=== PATIENT | male | born 1965 | race Caucasian/White ===

== ENCOUNTER 2020-10-20 14:15 | Emergency (ER) | payer OTHER ==
[2020-10-20 15:06] VITALS: BMI 34.5
[2020-10-20 16:30] LABS: BASO % 1.2 % (0-2.0); EOS % 0.4 % (0-4.5); HEMATOCRIT 30.3 % (35.4-49); HEMOGLOBIN 10.4 GM/dL (11.7-16.9); LYMPH % 14.6 % (8-40); MCH 26.9 pg (25.7-33.7); MCHC 34.2 g/dl (32.0-35.9); MEAN CELL VOLUME 78.7 fl (80-96); MEAN PLT VOLUME 9.4 fl (7.5-11.1); MONO % 8.4 % (3.8-10.2); NEUT % 75.4 % (42.8-82.8); PLATELET COUNT 111 K/MM3 (134-434); RBC 3.85 M/mm3 (4.00-5.60); RDW 19.9 % (11.9-15.9); WHITE BLOOD COUNT 6.6 K/mm3 (4.0-10.0)
[2020-10-20] MEDS ORDERED: chlordiazePOXIDE HCL 25 MG CAPSULE PO ONE ×2 (16:48→19:29)
[2020-10-20] MEDS ORDERED: chlordiazePOXIDE HCL 25 MG CAPSULE ONE ×2 (16:53→19:36)
[2020-10-20 16:56] LABS: BLOOD UREA NITROGEN 11.5 mg/dL (7-18); CALCIUM 8.3 mg/dL (8.5-10.1)
[2020-10-20 16:59] LABS: CREATININE 0.7 mg/dL (0.55-1.3)
[2020-10-20 17:01] LABS: BILIRUBIN,TOTAL 4.5 mg/dL (0.2-1); TOT PROT 8.5 g/dl (6.4-8.2)
[2020-10-20] MEDS ORDERED: DALBAVANCIN HCL 1,500 MG in DEXTROSE 5%-WATER - 500 ML IVPB ONE (17:36)
[2020-10-20] MEDS ORDERED: DALBAVANCIN HCL 500 MG VIAL (RESTRICTED TO ID ONLY) IVPB ONE (18:14)
[2020-10-20 20:37] VITALS: BP 127/68; PULSE 89; TEMP 98.6
== END 2020-10-20 20:36 | disposition home or self-care (01) ==
LOC: JER 14:15
DX: R21 Rash and other nonspecific skin eruption (principal); R22.42 Localized swelling, mass and lump, left lower limb
CPT/HCPCS: 36415; 80053; 84132; 85025; 93970-TC; 99284-25; J0875

== ENCOUNTER 2020-10-20 21:15 | Inpatient (IN) | payer OTHER ==
[2020-10-20 22:24] VITALS: BMI 34.0
[2020-10-20] MEDS ORDERED: IBUPROFEN 400 MG TABLET (FP) PO PRN (22:33)
[2020-10-20] MEDS ORDERED: ACETAMINOPHEN 325 MG TABLET (FP) PO PRN ×2 (22:33)
[2020-10-20] MEDS ORDERED: METHOCARBAMOL 500 MG TABLET PO PRN (22:33)
[2020-10-20] MEDS ORDERED: BISMUTH SUBSALICYLATE 524 MG/30 ML UD PO PRN (22:33)
[2020-10-20] MEDS ORDERED: ONDANSETRON *ODT* 4 MG TABLET SL PRN (22:33)
[2020-10-20] MEDS ORDERED: MENTHOL/PHENOL 1 EACH UD MM PRN (22:33)
[2020-10-20] MEDS ORDERED: MAG HYDROX/AL HYDROX/SIMETH 30 ML UNIT-DOSE CUP PO PRN (22:33)
[2020-10-20] MEDS ORDERED: chlordiazePOXIDE HCL 25 MG CAPSULE PO PRN (22:33)
[2020-10-20] MEDS ORDERED: MAGNESIUM HYDROX 2400MG/30ML ORAL SUSPENSION 30 ML CUP PO PRN (22:33)
[2020-10-20] MEDS ORDERED: MAGNESIUM CITRATE 300 ML BOTTLE PO PRN (22:33)
[2020-10-20] MEDS ORDERED: cloNIDine HCL 0.1 MG TABLET PO PRN (23:04)
[2020-10-21] MEDS: chlordiazePOXIDE HCL 25 MG CAPSULE PO SCH ×5 (00:52→22:17)
[2020-10-21] MEDS: hydrOXYzine PAMOATE 25 MG CAPSULE (FP) PO SCH ×6 (05:21→22:17)
[2020-10-21] MEDS ORDERED: METHADONE HCL 10 MG TABLET PO SCH (10:00)
[2020-10-21] MEDS ORDERED: MELATONIN 5 MG TABLETS PO PRN (10:24)
[2020-10-21] MEDS: PRENATAL VITAMINS W/ FOLIC ACID TABLET (FP) PO SCH (10:26)
[2020-10-21] MEDS ORDERED: METHADONE HCL 5 MG TABLET ONE (10:58)
[2020-10-21] MEDS ORDERED: METHADONE HCL 40 MG DISPERSABLE TABLET ONE (10:58)
[2020-10-21] MEDS: METHADONE 40 MG, METHADONE 15 MG PO SCH (11:05)
[2020-10-21] MEDS ORDERED: MELATONIN 5 MG TABLETS PO SCH (22:00)
[2020-10-21] MEDS: THIAMINE HCL 100 MG TABLET (FP) PO SCH (22:18)
[2020-10-22] MEDS ORDERED: METHADONE HCL 40 MG DISPERSABLE TABLET ONE (03:18)
[2020-10-22] MEDS ORDERED: METHADONE HCL 5 MG TABLET ONE (03:19)
[2020-10-22] MEDS: METHADONE 40 MG, METHADONE 15 MG PO SCH (06:33)
[2020-10-22] MEDS: hydrOXYzine PAMOATE 25 MG CAPSULE (FP) PO SCH ×6 (06:33→22:05)
[2020-10-22] MEDS: chlordiazePOXIDE HCL 25 MG CAPSULE PO SCH ×2 (06:34→10:23)
[2020-10-22] MEDS: PRENATAL VITAMINS W/ FOLIC ACID TABLET (FP) PO SCH (10:23)
[2020-10-22] MEDS ORDERED: cloNIDine HCL 0.1 MG TABLET PO PRN (10:33)
[2020-10-22] MEDS ORDERED: LORazepam 1 MG TABLET PO PRN (10:51)
[2020-10-22] MEDS: LORazepam 2 MG TABLET PO SCH ×2 (17:22→22:05)
[2020-10-22] MEDS: THIAMINE HCL 100 MG TABLET (FP) PO SCH (22:05)
[2020-10-22] MEDS: CLOTRIMAZOLE 1% CREAM 15 GM TUBE TP SCH (22:07)
[2020-10-23] MEDS ORDERED: chlordiazePOXIDE HCL 10 MG CAPSULE PO PRN
[2020-10-23] MEDS ORDERED: METHADONE HCL 40 MG DISPERSABLE TABLET ONE (03:50)
[2020-10-23] MEDS ORDERED: METHADONE HCL 5 MG TABLET ONE (03:51)
[2020-10-23] MEDS ORDERED: chlordiazePOXIDE HCL 10 MG CAPSULE PO SCH (05:00)
[2020-10-23] MEDS: hydrOXYzine PAMOATE 25 MG CAPSULE (FP) PO SCH ×5 (06:13→22:13)
[2020-10-23] MEDS: METHADONE 40 MG, METHADONE 15 MG PO SCH (06:14)
[2020-10-23] MEDS: LORazepam 1 MG TABLET PO SCH ×4 (06:15→22:12)
[2020-10-23] MEDS: PRENATAL VITAMINS W/ FOLIC ACID TABLET (FP) PO SCH (10:23)
[2020-10-23] MEDS: CLOTRIMAZOLE 1% CREAM 15 GM TUBE TP SCH ×2 (10:24→22:12)
[2020-10-23 10:38] LABS: BILIRUBIN,DIRECT 3.5 mg/dL (0.0-0.2)
[2020-10-23 10:40] LABS: BILIRUBIN,TOTAL 5.2 mg/dL (0.2-1); TOT PROT 7.7 g/dl (6.4-8.2)
[2020-10-23] MEDS: THIAMINE HCL 100 MG TABLET (FP) PO SCH (22:12)
[2020-10-24] MEDS ORDERED: LORazepam 0.5 MG TABLET PO PRN
[2020-10-24] MEDS ORDERED: METHADONE HCL 40 MG DISPERSABLE TABLET ONE (03:28)
[2020-10-24] MEDS ORDERED: METHADONE HCL 5 MG TABLET ONE (03:29)
[2020-10-24] MEDS ORDERED: chlordiazePOXIDE HCL 10 MG CAPSULE PO SCH (05:00)
[2020-10-24] MEDS: METHADONE 40 MG, METHADONE 15 MG PO SCH (05:26)
[2020-10-24] MEDS: hydrOXYzine PAMOATE 25 MG CAPSULE (FP) PO SCH ×5 (05:26→22:16)
[2020-10-24] MEDS: LORazepam 0.5 MG TABLET PO SCH ×4 (05:27→22:15)
[2020-10-24 06:06] LABS: SARS-CoV-2 NAA Not Detected (Not Detected)
[2020-10-24 09:58] LABS: ALBUMIN 2.5 g/dl (3.4-5.0); INR 1.26 (0.83-1.09); PROTHROMBIN TIME (PATIENT) 15.2 SEC (9.7-13.0)
[2020-10-24 09:59] LABS: BLOOD UREA NITROGEN 10.2 mg/dL (7-18)
[2020-10-24 10:01] LABS: CREATININE 0.6 mg/dL (0.55-1.3)
[2020-10-24 10:03] LABS: TOT PROT 6.7 g/dl (6.4-8.2)
[2020-10-24 10:04] LABS: HEMATOCRIT 25.2 % (35.4-49); HEMOGLOBIN 8.7 GM/dL (11.7-16.9); MCHC 34.3 g/dl (32.0-35.9); MEAN CELL VOLUME 81.7 fl (80-96); MEAN PLT VOLUME 8.5 fl (7.5-11.1); PLATELET COUNT 38 K/MM3 (134-434); RBC 3.09 M/mm3 (4.00-5.60); RDW 20.3 % (11.9-15.9); WHITE BLOOD COUNT 3.4 K/mm3 (4.0-10.0)
[2020-10-24] MEDS: CLOTRIMAZOLE 1% CREAM 15 GM TUBE TP SCH ×2 (10:25→22:16)
[2020-10-24] MEDS: PRENATAL VITAMINS W/ FOLIC ACID TABLET (FP) PO SCH (10:25)
[2020-10-24] MEDS: LACTULOSE 20 GM/30 ML UDC (FOR ORAL USE ONLY) PO SCH ×3 (14:16→22:15)
[2020-10-24] MEDS: FERROUS SO4 325 MG TABLET (FP) PO SCH (17:46)
[2020-10-24] MEDS: THIAMINE HCL 100 MG TABLET (FP) PO SCH (22:16)
[2020-10-25] MEDS ORDERED: METHADONE HCL 40 MG DISPERSABLE TABLET ONE (03:46)
[2020-10-25] MEDS ORDERED: METHADONE HCL 5 MG TABLET ONE (03:46)
[2020-10-25] MEDS ORDERED: chlordiazePOXIDE HCL 10 MG CAPSULE PO ONE (05:00)
[2020-10-25] MEDS ORDERED: LORazepam 0.5 MG TABLET PO ONE (05:00)
[2020-10-25] MEDS: hydrOXYzine PAMOATE 25 MG CAPSULE (FP) PO SCH ×5 (05:19→22:20)
[2020-10-25] MEDS: METHADONE 40 MG, METHADONE 15 MG PO SCH (05:19)
[2020-10-25] MEDS: FERROUS SO4 325 MG TABLET (FP) PO SCH ×3 (08:00→18:12)
[2020-10-25 10:00] LABS: HEMATOCRIT 25.9 % (35.4-49); HEMOGLOBIN 8.5 GM/dL (11.7-16.9); MCH 27.7 pg (25.7-33.7); MCHC 32.9 g/dl (32.0-35.9); MEAN CELL VOLUME 84.2 fl (80-96); MEAN PLT VOLUME 8.8 fl (7.5-11.1); PLATELET COUNT 39 K/MM3 (134-434); RBC 3.08 M/mm3 (4.00-5.60); RDW 20.7 % (11.9-15.9); WHITE BLOOD COUNT 3.6 K/mm3 (4.0-10.0)
[2020-10-25 10:04] LABS: ALBUMIN 2.6 g/dl (3.4-5.0)
[2020-10-25 10:07] LABS: CREATININE 0.6 mg/dL (0.55-1.3)
[2020-10-25 10:09] LABS: BILIRUBIN,TOTAL 3.7 mg/dL (0.2-1); INR 1.31 (0.83-1.09); TOT PROT 6.9 g/dl (6.4-8.2)
[2020-10-25] MEDS: LACTULOSE 20 GM/30 ML UDC (FOR ORAL USE ONLY) PO SCH ×4 (10:22→22:22)
[2020-10-25] MEDS: PRENATAL VITAMINS W/ FOLIC ACID TABLET (FP) PO SCH (10:23)
[2020-10-25] MEDS: THIAMINE HCL 100 MG TABLET (FP) PO SCH (22:19)
[2020-10-25] MEDS: CLOTRIMAZOLE 1% CREAM 15 GM TUBE TP SCH (22:19)
[2020-10-26] MEDS ORDERED: METHADONE HCL 40 MG DISPERSABLE TABLET ONE (04:16)
[2020-10-26] MEDS ORDERED: METHADONE HCL 5 MG TABLET ONE (04:16)
[2020-10-26] MEDS: METHADONE 40 MG, METHADONE 15 MG PO SCH (05:32)
[2020-10-26] MEDS: hydrOXYzine PAMOATE 25 MG CAPSULE (FP) PO SCH ×5 (05:33→22:09)
[2020-10-26] MEDS: FERROUS SO4 325 MG TABLET (FP) PO SCH ×3 (08:17→18:17)
[2020-10-26] MEDS: PRENATAL VITAMINS W/ FOLIC ACID TABLET (FP) PO SCH (10:30)
[2020-10-26] MEDS: LACTULOSE 20 GM/30 ML UDC (FOR ORAL USE ONLY) PO SCH ×4 (10:31→22:09)
[2020-10-26 10:38] LABS: ALBUMIN 2.5 g/dl (3.4-5.0)
[2020-10-26 10:42] LABS: BILIRUBIN,TOTAL 4.4 mg/dL (0.2-1); TOT PROT 6.5 g/dl (6.4-8.2)
[2020-10-26] MEDS: THIAMINE HCL 100 MG TABLET (FP) PO SCH (22:09)
[2020-10-26] MEDS: CLOTRIMAZOLE 1% CREAM 15 GM TUBE TP SCH (22:10)
[2020-10-27] MEDS ORDERED: METHADONE HCL 40 MG DISPERSABLE TABLET ONE (04:18)
[2020-10-27] MEDS ORDERED: METHADONE HCL 5 MG TABLET ONE (04:19)
[2020-10-27] MEDS: METHADONE 40 MG, METHADONE 15 MG PO SCH (06:25)
[2020-10-27] MEDS: FERROUS SO4 325 MG TABLET (FP) PO SCH ×2 (07:03→11:12)
[2020-10-27 09:44] VITALS: BP 140/85; PULSE 86; TEMP 98
[2020-10-27] MEDS: LACTULOSE 20 GM/30 ML UDC (FOR ORAL USE ONLY) PO SCH (10:19)
[2020-10-27] MEDS: PRENATAL VITAMINS W/ FOLIC ACID TABLET (FP) PO SCH (10:19)
[2020-10-27 11:32] LABS: HEMATOCRIT 25.4 % (35.4-49); HEMOGLOBIN 8.4 GM/dL (11.7-16.9); MCHC 33.2 g/dl (32.0-35.9); MEAN CELL VOLUME 84.3 fl (80-96); MEAN PLT VOLUME 9.1 fl (7.5-11.1); PLATELET COUNT 44 K/MM3 (134-434); RBC 3.01 M/mm3 (4.00-5.60); RDW 21.4 % (11.9-15.9); WHITE BLOOD COUNT 2.9 K/mm3 (4.0-10.0)
[2020-10-27 11:35] LABS: INR 1.31 (0.83-1.09)
[2020-10-27 11:41] LABS: CALCIUM 8.1 mg/dL (8.5-10.1)
[2020-10-27 11:42] LABS: ALBUMIN 2.5 g/dl (3.4-5.0); BLOOD UREA NITROGEN 10.5 mg/dL (7-18)
[2020-10-27 11:45] LABS: CREATININE 0.6 mg/dL (0.55-1.3)
[2020-10-27 11:46] LABS: BILIRUBIN,TOTAL 3.8 mg/dL (0.2-1); TOT PROT 6.7 g/dl (6.4-8.2)
== END 2020-10-27 12:58 | disposition home or self-care (01) | DRG 773 ==
LOC: YASAS 21:15 → Y6N 22:09
PROVIDERS: ADMIT Allergy & Immunology; ATTEND Allergy & Immunology
PROC: HZ2ZZZZ Detoxification Services for Substance Abuse Treatment (ICD-10-PCS; principal; 2020-10-20)
DX: F10.230 Alcohol dependence with withdrawal, uncomplicated (principal); F11.20 Opioid dependence, uncomplicated; F10.282 Alcohol dependence with alcohol-induced sleep disorder; F10.280 Alcohol dependence with alcohol-induced anxiety disorder; F41.9 Anxiety disorder, unspecified; D61.818 Other pancytopenia; D69.6 Thrombocytopenia, unspecified; D64.9 Anemia, unspecified; D72.818 Other decreased white blood cell count; I10 Essential (primary) hypertension; L03.116 Cellulitis of left lower limb; R74.01 Elevation of levels of liver transaminase levels; B35.6 Tinea cruris; R79.89 Other specified abnormal findings of blood chemistry; R76.11 Nonspecific reaction to tuberculin skin test without active tuberculosis; Z87.891 Personal history of nicotine dependence; Z88.8 Allergy status to other drugs, medicaments and biological substances
CPT/HCPCS: 36415; 71046-TC-FY; 80053; 80076; 82140; 85027; 85610; 86780; 93005; 93010; C9803; U0003; U0005

== ENCOUNTER 2021-01-19 13:30 | Inpatient (IN) | payer OTHER ==
[2021-01-19 18:56] VITALS: BMI 31.3
[2021-01-19] MEDS ORDERED: IBUPROFEN 400 MG TABLET (FP) PO PRN (19:30)
[2021-01-19] MEDS ORDERED: MENTHOL/PHENOL 1 EACH UD MM PRN (19:30)
[2021-01-19] MEDS ORDERED: MAG HYDROX/AL HYDROX/SIMETH 30 ML UNIT-DOSE CUP PO PRN (19:30)
[2021-01-19] MEDS ORDERED: MAGNESIUM HYDROX 2400MG/30ML ORAL SUSPENSION 30 ML CUP PO PRN (19:30)
[2021-01-19] MEDS ORDERED: METHOCARBAMOL 500 MG TABLET PO PRN (19:30)
[2021-01-19] MEDS ORDERED: MAGNESIUM CITRATE 300 ML BOTTLE PO PRN (19:30)
[2021-01-19] MEDS ORDERED: BISMUTH SUBSALICYLATE 524 MG/30 ML PO PRN (19:30)
[2021-01-19] MEDS ORDERED: ONDANSETRON *ODT* 4 MG TABLET SL PRN (19:30)
[2021-01-19] MEDS ORDERED: LORazepam 1 MG TABLET PO PRN (19:32)
[2021-01-20] MEDS: hydrOXYzine PAMOATE 25 MG CAPSULE (FP) PO PRN (00:05)
[2021-01-20] MEDS: LORazepam 2 MG TABLET PO SCH ×5 (00:05→22:24)
[2021-01-20] MEDS: MELATONIN 5 MG TABLETS PO SCH ×2 (00:05→22:24)
[2021-01-20] MEDS: SPIRONOLACTONE 25 MG TABLET PO SCH ×2 (00:05→12:06)
[2021-01-20] MEDS: THIAMINE HCL 100 MG TABLET (FP) PO SCH ×2 (00:05→22:25)
[2021-01-20] MEDS ORDERED: methaDONE HCL 10 MG TABLET PO SCH (08:45)
[2021-01-20 09:04] LABS: HEMOGLOBIN 10.5 GM/dL (11.7-16.9); MCH 28.3 pg (25.7-33.7); MCHC 33.8 g/dl (32.0-35.9); MEAN CELL VOLUME 83.6 fl (80-96); MEAN PLT VOLUME 8.1 fl (7.5-11.1); RBC 3.71 M/mm3 (4.00-5.60); RDW 19.7 % (11.9-15.9); WHITE BLOOD COUNT 2.7 K/mm3 (4.0-10.0)
[2021-01-20 09:27] LABS: PLATELET COUNT 26 10^3/uL (134-434)
[2021-01-20 09:28] LABS: CALCIUM 7.4 mg/dL (8.5-10.1)
[2021-01-20 09:29] LABS: ALBUMIN 2.8 g/dl (3.4-5.0); BLOOD UREA NITROGEN 13.7 mg/dL (7-18)
[2021-01-20 09:32] LABS: CREATININE 0.5 mg/dL (0.55-1.3)
[2021-01-20 09:33] LABS: BILIRUBIN,TOTAL 2.4 mg/dL (0.2-1)
[2021-01-20 09:34] LABS: TOT PROT 6.9 g/dl (6.4-8.2)
[2021-01-20] MEDS ORDERED: methaDONE HCL 10 MG TABLET ONE (10:39)
[2021-01-20] MEDS ORDERED: methaDONE HCL 40 MG DISPERSABLE TABLET ONE (10:39)
[2021-01-20] MEDS: PRENATAL VITAMINS W/ FOLIC ACID TABLET (FP) PO SCH (10:40)
[2021-01-20] MEDS ORDERED: POTASSIUM CHLORIDE TABS 20 MEQ TABLET.ER (FP) PO ONE (10:42)
[2021-01-20] MEDS ORDERED: ACETAMINOPHEN 325 MG TABLET (FP) PO PRN (14:04)
[2021-01-20] MEDS: cloNIDine HCL 0.1 MG TABLET PO PRN (18:43)
[2021-01-21] MEDS ORDERED: methaDONE HCL 10 MG TABLET ONE (03:00)
[2021-01-21] MEDS ORDERED: methaDONE HCL 40 MG DISPERSABLE TABLET ONE (03:01)
[2021-01-21] MEDS: LORazepam 1 MG TABLET PO SCH ×4 (05:11→22:15)
[2021-01-21] MEDS: PRENATAL VITAMINS W/ FOLIC ACID TABLET (FP) PO SCH (10:17)
[2021-01-21] MEDS: SPIRONOLACTONE 25 MG TABLET PO SCH (10:17)
[2021-01-21 10:25] LABS: BASO % 0.7 % (0-2.0); EOS % 3.8 % (0-4.5); HEMATOCRIT 30.8 % (35.4-49); HEMOGLOBIN 10.5 GM/dL (11.7-16.9); MCH 28.3 pg (25.7-33.7); MCHC 34.2 g/dl (32.0-35.9); MEAN CELL VOLUME 82.7 fl (80-96); MEAN PLT VOLUME 8.3 fl (7.5-11.1); MONO % 15.3 % (3.8-10.2); NEUT % 44.2 % (42.8-82.8); RBC 3.72 M/mm3 (4.00-5.60)
[2021-01-21 11:02] LABS: PLATELET COUNT 19 10^3/uL (134-434)
[2021-01-21] MEDS ORDERED: amLODIPine BESYLATE 5 MG TABLET (FP) PO SCH (12:30)
[2021-01-21] MEDS: cloNIDine HCL 0.1 MG TABLET PO PRN (13:10)
[2021-01-21] MEDS: FERROUS SO4 325 MG TABLET (FP) PO SCH ×2 (13:10→17:31)
[2021-01-21] MEDS ORDERED: AMMONIUM LACTATE 12% LOTION 225 GM BOTTLE TP PRN (14:46)
[2021-01-21] MEDS: hydrOXYzine PAMOATE 25 MG CAPSULE (FP) PO PRN (22:15)
[2021-01-21] MEDS: MELATONIN 5 MG TABLETS PO SCH (22:15)
[2021-01-21] MEDS: THIAMINE HCL 100 MG TABLET (FP) PO SCH (22:15)
[2021-01-21] MEDS: TRIAMCINOLONE ACET 0.1% OINT 15 GM TUBE TP SCH (22:17)
[2021-01-21] MEDS: MUPIROCIN 2% TOPICAL OINTMENT 22 GM TUBE TP SCH ×3 (22:17→23:19)
[2021-01-22] MEDS ORDERED: LORazepam 0.5 MG TABLET PO PRN
[2021-01-22] MEDS ORDERED: methaDONE HCL 10 MG TABLET ONE (04:29)
[2021-01-22] MEDS ORDERED: methaDONE HCL 40 MG DISPERSABLE TABLET ONE (04:29)
[2021-01-22] MEDS: LORazepam 0.5 MG TABLET PO SCH ×4 (05:14→22:22)
[2021-01-22] MEDS: MUPIROCIN 2% TOPICAL OINTMENT 22 GM TUBE TP SCH ×3 (06:40→22:24)
[2021-01-22] MEDS: FERROUS SO4 325 MG TABLET (FP) PO SCH ×3 (07:24→17:57)
[2021-01-22] MEDS: PRENATAL VITAMINS W/ FOLIC ACID TABLET (FP) PO SCH (10:18)
[2021-01-22] MEDS: SPIRONOLACTONE 25 MG TABLET PO SCH (10:18)
[2021-01-22] MEDS: TRIAMCINOLONE ACET 0.1% OINT 15 GM TUBE TP SCH ×2 (10:18→22:24)
[2021-01-22 10:32] LABS: BILIRUBIN,DIRECT 2.2 mg/dL (0.0-0.2)
[2021-01-22 10:33] LABS: BILIRUBIN,TOTAL 3.6 mg/dL (0.2-1); TOT PROT 7.2 g/dl (6.4-8.2)
[2021-01-22 15:56] LABS: HEMATOCRIT 33.4 % (35.4-49); HEMOGLOBIN 11.2 GM/dL (11.7-16.9); MCH 28.2 pg (25.7-33.7); MCHC 33.5 g/dl (32.0-35.9); MEAN CELL VOLUME 84.2 fl (80-96); MEAN PLT VOLUME 8.1 fl (7.5-11.1); RBC 3.97 M/mm3 (4.00-5.60); RDW 19.6 % (11.9-15.9); WHITE BLOOD COUNT 3.1 K/mm3 (4.0-10.0)
[2021-01-22 16:08] LABS: PLATELET COUNT 22 10^3/uL (134-434)
[2021-01-22] MEDS: hydrOXYzine PAMOATE 25 MG CAPSULE (FP) PO PRN (20:03)
[2021-01-22] MEDS: MELATONIN 5 MG TABLETS PO SCH (22:24)
[2021-01-22] MEDS: THIAMINE HCL 100 MG TABLET (FP) PO SCH (22:24)
[2021-01-23] MEDS ORDERED: methaDONE HCL 10 MG TABLET ONE (04:08)
[2021-01-23] MEDS ORDERED: methaDONE HCL 40 MG DISPERSABLE TABLET ONE (04:08)
[2021-01-23] MEDS ORDERED: LORazepam 0.5 MG TABLET PO ONE (05:00)
[2021-01-23] MEDS: MUPIROCIN 2% TOPICAL OINTMENT 22 GM TUBE TP SCH (06:02)
[2021-01-23] MEDS: hydrOXYzine PAMOATE 25 MG CAPSULE (FP) PO PRN ×2 (06:02→10:33)
[2021-01-23] MEDS: FERROUS SO4 325 MG TABLET (FP) PO SCH ×2 (07:04→11:19)
[2021-01-23 09:55] VITALS: BP 114/71; PULSE 71; TEMP 96.9
[2021-01-23] MEDS: TRIAMCINOLONE ACET 0.1% OINT 15 GM TUBE TP SCH (10:32)
[2021-01-23] MEDS: SPIRONOLACTONE 25 MG TABLET PO SCH (10:32)
[2021-01-23] MEDS: PRENATAL VITAMINS W/ FOLIC ACID TABLET (FP) PO SCH (10:32)
== END 2021-01-23 11:19 | disposition home or self-care (01) | DRG 773 ==
LOC: YASAS 13:30 → Y3N 21:50
PROVIDERS: ADMIT Allergy & Immunology; ATTEND Allergy & Immunology
PROC: HZ2ZZZZ Detoxification Services for Substance Abuse Treatment (ICD-10-PCS; principal; 2021-01-19)
DX: F10.230 Alcohol dependence with withdrawal, uncomplicated (principal); F10.220 Alcohol dependence with intoxication, uncomplicated; F11.20 Opioid dependence, uncomplicated; F19.24 Other psychoactive substance dependence with psychoactive substance-induced mood disorder; F41.9 Anxiety disorder, unspecified; F32.9 Major depressive disorder, single episode, unspecified; I10 Essential (primary) hypertension; K74.60 Unspecified cirrhosis of liver; E87.6 Hypokalemia; R21 Rash and other nonspecific skin eruption; L98.9 Disorder of the skin and subcutaneous tissue, unspecified; R01.1 Cardiac murmur, unspecified; Z87.891 Personal history of nicotine dependence; Z88.8 Allergy status to other drugs, medicaments and biological substances; Z86.11 Personal history of tuberculosis; Z56.0 Unemployment, unspecified
CPT/HCPCS: 36415; 80053; 80076; 84132; 85025; 85027; 86780; C9803; J0735; U0003; U0005

== ENCOUNTER 2021-02-07 12:43 | Inpatient (IN) | payer OTHER ==
[2021-02-07] MEDS ORDERED: FOLIC ACID INJECTION - 1 MG, THIAMINE HCL 100 MG, MULTIVIT INJECTION ADULT 10 ML in SOD... IVPB ONE (13:53)
[2021-02-07] MEDS ORDERED: LORazepam 2 MG TABLET PO ONE ×2 (16:46→19:50)
[2021-02-07] MEDS ORDERED: LORazepam 1 MG TABLET ONE ×3 (16:55→20:28)
[2021-02-07 18:52] LABS: BASO % 1.1 % (0-2.0); EOS % 0.9 % (0-4.5); HEMATOCRIT 33.1 % (35.4-49); HEMOGLOBIN 11.3 GM/dL (11.7-16.9); MCH 29.1 pg (25.7-33.7); MCHC 34.1 g/dl (32.0-35.9); MEAN CELL VOLUME 85.5 fl (80-96); MEAN PLT VOLUME 7.4 fl (7.5-11.1); MONO % 11.5 % (3.8-10.2); NEUT % 65.5 % (42.8-82.8); PLATELET COUNT 63 10^3/uL (134-434); RBC 3.87 M/mm3 (4.00-5.60); RDW 16.7 % (11.9-15.9); WHITE BLOOD COUNT 4.6 K/mm3 (4.0-10.0)
[2021-02-07 19:20] LABS: CALCIUM 8.6 mg/dL (8.5-10.1)
[2021-02-07 19:21] LABS: ALBUMIN 3.6 g/dl (3.4-5.0); BLOOD UREA NITROGEN 13.6 mg/dL (7-18)
[2021-02-07 19:24] LABS: CREATININE 0.5 mg/dL (0.55-1.3)
[2021-02-07 19:25] LABS: BILIRUBIN,TOTAL 2.2 mg/dL (0.2-1); TOT PROT 8.4 g/dl (6.4-8.2)
[2021-02-07 21:57] LABS: PHENCYCLIDINE,URINE NEGATIVE (NEGATIVE); URINE BARBITURATES NEGATIVE (NEGATIVE); URINE BENZODIAZEPINES NEGATIVE (NEGATIVE)
[2021-02-07 22:04] LABS: COCAINE, UR NEGATIVE (NEGATIVE); METHADONE, UR POSITIVE (NEGATIVE); OPIATES, URI NEGATIVE (NEGATIVE); URINE AMPHETAMINES NEGATIVE (NEGATIVE)
[2021-02-07 22:19] LABS: URINE APPEARANCE CLEAR; URINE BILIRUBIN NEGATIVE (NEGATIVE); URINE COLOR DK YELLOW; URINE GLUCOSE (UA) NEGATIVE (NEGATIVE); URINE KETONE NEGATIVE (NEGATIVE); URINE LEUK ESTERASE NEGATIVE (NEGATIVE); URINE NITRITE NEGATIVE (NEGATIVE); URINE PROTEIN NEGATIVE (NEGATIVE); URINE UROBILINOGEN 4.0 E.U/dl mg/dL (0.2-1.0)
[2021-02-07] MEDS ORDERED: LORazepam 1 MG TABLET PO ONE (23:47)
[2021-02-08] MEDS ORDERED: LORazepam 1 MG TABLET ONE ×2 (00:02→06:24)
[2021-02-08] MEDS ORDERED: LORazepam 1 MG TABLET PO PRN (02:11)
[2021-02-08] MEDS ORDERED: LORazepam 2 MG TABLET PO ONE (02:11)
[2021-02-08] MEDS ORDERED: LORazepam 1 MG TABLET PO ONE (02:11)
[2021-02-08] MEDS: LORazepam 1 MG TABLET PO SCH ×4 (06:20→22:02)
[2021-02-08 07:53] LABS: BASO % 1.2 % (0-2.0); EOS % 3.3 % (0-4.5); HEMATOCRIT 29.8 % (35.4-49); HEMOGLOBIN 10.4 GM/dL (11.7-16.9); LYMPH % 32.7 % (8-40); MCH 29.8 pg (25.7-33.7); MCHC 34.8 g/dl (32.0-35.9); MEAN CELL VOLUME 85.6 fl (80-96); MEAN PLT VOLUME 7.6 fl (7.5-11.1); MONO % 17.1 % (3.8-10.2); NEUT % 45.7 % (42.8-82.8); PLATELET COUNT 46 10^3/uL (134-434); RBC 3.48 M/mm3 (4.00-5.60); RDW 16.7 % (11.9-15.9); WHITE BLOOD COUNT 2.7 K/mm3 (4.0-10.0)
[2021-02-08 07:57] LABS: INR 1.26 (0.83-1.09); PROTHROMBIN TIME (PATIENT) 15.4 SEC (9.7-13.0)
[2021-02-08 07:59] LABS: ACTIVATED PTT 42.6 SECONDS (25.2-36.5)
[2021-02-08 08:13] LABS: CHLORIDE 103 mmol/L (98-107); SODIUM 137 mmol/L (136-145)
[2021-02-08 08:17] LABS: CALCIUM 8.2 mg/dL (8.5-10.1)
[2021-02-08 08:18] LABS: ALBUMIN 3.1 g/dl (3.4-5.0); BLOOD UREA NITROGEN 12.6 mg/dL (7-18); CO2 26 mmol/L (21-32); GLUCOSE,RANDOM 81 mg/dL (74-106)
[2021-02-08 08:20] LABS: MAGNESIUM 1.9 mg/dL (1.8-2.4)
[2021-02-08 08:21] LABS: PHOSPHOROUS 3.4 mg/dL (2.5-4.9)
[2021-02-08 08:23] LABS: BILIRUBIN,TOTAL 2.4 mg/dL (0.2-1); CREATININE 0.4 mg/dL (0.55-1.3); IRON SERUM 61 ug/dL (50-175); SGOT/AST 69 U/L (15-37); SGPT/ALT 48 U/L (13-61); TOTAL IRON BINDING CAPACITY 366 ug/dL (250-450)
[2021-02-08 08:24] LABS: ALK PHOS 106 U/L (45-117)
[2021-02-08 08:28] LABS: LDH 203 U/L (87-246)
[2021-02-08 08:53] LABS: ANION GAP 8 MMOL/L (8-16)
[2021-02-08] MEDS ORDERED: FOLIC ACID 1 MG TABLET (FP) PO SCH (10:00)
[2021-02-08] MEDS ORDERED: methaDONE HCL 10 MG TABLET (FOR DETOX USE ONLY) PO ONE (10:32)
[2021-02-08] MEDS ORDERED: methaDONE HCL 40 MG DISPERSABLE TABLET ONE (10:50)
[2021-02-08] MEDS ORDERED: methaDONE HCL 10 MG TABLET ONE (10:51)
[2021-02-08] MEDS: POTASSIUM CHLORIDE TABS 20 MEQ TABLET.ER (FP) PO SCH ×2 (11:00→22:02)
[2021-02-08] MEDS: THIAMINE HCL 200 MG/2 ML VIAL IVPB SCH (11:00)
[2021-02-08 12:48] VITALS: BMI 31.6
[2021-02-08] MEDS ORDERED: LACTULOSE 20 GM/30 ML UDC (FOR ORAL USE ONLY) PO SCH (16:00)
[2021-02-08] MEDS: LACTULOSE 20 GM/30 ML UDC (FOR ORAL USE ONLY) PO SCH (22:03)
[2021-02-09] MEDS: LACTULOSE 20 GM/30 ML UDC (FOR ORAL USE ONLY) PO SCH ×3 (05:40→22:14)
[2021-02-09] MEDS: LORazepam 1 MG TABLET PO SCH ×4 (05:40→22:13)
[2021-02-09] MEDS ORDERED: methaDONE HCL 10 MG TABLET PO ONE (07:45)
[2021-02-09] MEDS ORDERED: methaDONE HCL 10 MG TABLET ONE (09:06)
[2021-02-09] MEDS: THIAMINE HCL 200 MG/2 ML VIAL IVPB SCH (09:12)
[2021-02-09 09:34] LABS: HEMATOCRIT 29.9 % (35.4-49); HEMOGLOBIN 10.2 GM/dL (11.7-16.9); MCH 29.2 pg (25.7-33.7); MCHC 34.2 g/dl (32.0-35.9); MEAN CELL VOLUME 85.4 fl (80-96); MEAN PLT VOLUME 7.6 fl (7.5-11.1); PLATELET COUNT 39 10^3/uL (134-434); RDW 16.5 % (11.9-15.9); WHITE BLOOD COUNT 2.4 K/mm3 (4.0-10.0)
[2021-02-09 10:21] LABS: ALBUMIN 3.2 g/dl (3.4-5.0); CALCIUM 8.5 mg/dL (8.5-10.1)
[2021-02-09 10:22] LABS: BLOOD UREA NITROGEN 12.9 mg/dL (7-18)
[2021-02-09 10:30] LABS: BILIRUBIN,TOTAL 2.3 mg/dL (0.2-1); CREATININE 0.7 mg/dL (0.55-1.3); MAGNESIUM 2.2 mg/dL (1.8-2.4); TOT PROT 7.2 g/dl (6.4-8.2)
[2021-02-10] MEDS ORDERED: LORazepam 0.5 MG TABLET PO PRN
[2021-02-10 03:10] LABS: FIBROSIS SCORE. 0.92 (0.00-0.21); HCV ALPHA 2 MACRO CHART 194 mg/dL (110-276); NECRO.INFLAM ACT.SCORE 0.45 (0.00-0.17); NECROINFLAM. ACTIVITY GRADE A1-A2 (.)
[2021-02-10] MEDS ORDERED: methaDONE HCL 10 MG TABLET ONE (05:08)
[2021-02-10] MEDS: LORazepam 0.5 MG TABLET PO SCH ×4 (05:16→22:03)
[2021-02-10] MEDS: LACTULOSE 20 GM/30 ML UDC (FOR ORAL USE ONLY) PO SCH ×3 (05:17→22:03)
[2021-02-10 08:10] LABS: BASO % 2.1 % (0-2.0); EOS % 2.8 % (0-4.5); HEMATOCRIT 30.8 % (35.4-49); HEMOGLOBIN 10.7 GM/dL (11.7-16.9); LYMPH % 32.6 % (8-40); MCH 29.8 pg (25.7-33.7); MCHC 34.6 g/dl (32.0-35.9); MEAN CELL VOLUME 86.2 fl (80-96); MEAN PLT VOLUME 7.7 fl (7.5-11.1); MONO % 16.8 % (3.8-10.2); NEUT % 45.7 % (42.8-82.8); PLATELET COUNT 46 10^3/uL (134-434); RBC 3.58 M/mm3 (4.00-5.60); RDW 16.4 % (11.9-15.9)
[2021-02-10 08:53] LABS: ALBUMIN 3.1 g/dl (3.4-5.0); BILIRUBIN,TOTAL 1.6 mg/dL (0.2-1); BLOOD UREA NITROGEN 14.1 mg/dL (7-18); CALCIUM 8.4 mg/dL (8.5-10.1); CREATININE 0.6 mg/dL (0.55-1.3)
[2021-02-10] MEDS: THIAMINE HCL 200 MG/2 ML VIAL IVPB SCH (09:40)
[2021-02-11] MEDS ORDERED: LORazepam 0.5 MG TABLET PO ONE (05:00)
[2021-02-11] MEDS ORDERED: methaDONE HCL 10 MG TABLET ONE (05:04)
[2021-02-11] MEDS: LACTULOSE 20 GM/30 ML UDC (FOR ORAL USE ONLY) PO SCH ×3 (05:12→21:16)
[2021-02-11] MEDS ORDERED: PT OWN MED DRAWER 7, Y5N ONE (09:46)
[2021-02-11] MEDS: FLUoxetine HCL 10 MG CAPSULE PO SCH (09:53)
[2021-02-11 10:03] LABS: BASO % 1.3 % (0-2.0); EOS % 3.2 % (0-4.5); HEMATOCRIT 31.3 % (35.4-49); HEMOGLOBIN 10.8 GM/dL (11.7-16.9); LYMPH % 30.1 % (8-40); MCH 29.7 pg (25.7-33.7); MCHC 34.4 g/dl (32.0-35.9); MEAN CELL VOLUME 86.4 fl (80-96); MEAN PLT VOLUME 8.1 fl (7.5-11.1); MONO % 11.8 % (3.8-10.2); NEUT % 53.6 % (42.8-82.8); PLATELET COUNT 53 10^3/uL (134-434); RBC 3.62 M/mm3 (4.00-5.60); RDW 16.5 % (11.9-15.9); WHITE BLOOD COUNT 3.5 K/mm3 (4.0-10.0)
[2021-02-11 10:16] LABS: BLOOD UREA NITROGEN 14.5 mg/dL (7-18)
[2021-02-11 10:19] LABS: ALBUMIN 3.2 g/dl (3.4-5.0); CALCIUM 8.4 mg/dL (8.5-10.1); MAGNESIUM 2.1 mg/dL (1.8-2.4)
[2021-02-11 10:23] LABS: BILIRUBIN,TOTAL 2.2 mg/dL (0.2-1)
[2021-02-11 10:31] LABS: CREATININE 0.9 mg/dL (0.55-1.3); TOT PROT 8.1 g/dl (6.4-8.2)
[2021-02-11] MEDS ORDERED: THIAMINE HCL 100 MG TABLET (FP) PO SCH (22:00)
[2021-02-11] MEDS ORDERED: MELATONIN 5 MG TABLETS PO PRN (23:25)
[2021-02-12] MEDS ORDERED: methaDONE HCL 10 MG TABLET ONE (05:38)
[2021-02-12] MEDS: LACTULOSE 20 GM/30 ML UDC (FOR ORAL USE ONLY) PO SCH ×2 (05:41→14:05)
[2021-02-12 09:29] LABS: BASO % 1.3 % (0-2.0); EOS % 2.9 % (0-4.5); HEMATOCRIT 32.7 % (35.4-49); HEMOGLOBIN 11.1 GM/dL (11.7-16.9); LYMPH % 30.1 % (8-40); MEAN CELL VOLUME 85.4 fl (80-96); MEAN PLT VOLUME 8.1 fl (7.5-11.1); MONO % 11.7 % (3.8-10.2); PLATELET COUNT 57 10^3/uL (134-434); RBC 3.83 M/mm3 (4.00-5.60); RDW 16.5 % (11.9-15.9); WHITE BLOOD COUNT 4.1 K/mm3 (4.0-10.0)
[2021-02-12] MEDS: FLUoxetine HCL 10 MG CAPSULE PO SCH (10:05)
[2021-02-12 10:11] VITALS: PULSE 71
[2021-02-12 10:13] LABS: BLOOD UREA NITROGEN 12.4 mg/dL (7-18)
[2021-02-12 10:14] LABS: ALBUMIN 3.3 g/dl (3.4-5.0); MAGNESIUM 2.1 mg/dL (1.8-2.4)
[2021-02-12 10:16] LABS: CREATININE 0.5 mg/dL (0.55-1.3); TOT PROT 8.4 g/dl (6.4-8.2)
[2021-02-12 10:33] LABS: BILIRUBIN,TOTAL 1.8 mg/dL (0.2-1)
[2021-02-12 14:12] VITALS: BP 129/79; TEMP 98.1
[2021-02-13] MEDS ORDERED: FLUoxetine HCL 10 MG CAPSULE PO SCH (22:00)
== END 2021-02-12 15:23 | disposition other institution (70) | DRG 773 ==
LOC: JER 12:43 → JERBED 22:33 → INTOOBSV 22:33 → UNDOADMOB 22:33 → JERBED 02-08 09:57 → J5S 02-08 09:57 → JERBED 02-08 12:15 → J5S 02-08 12:15 → OBSVTOIN 02-10 17:30
PROVIDERS: ADMIT Internal Medicine; ATTEND Nurse Practitioner Acute Care
PROC: HZ2ZZZZ Detoxification Services for Substance Abuse Treatment (ICD-10-PCS; principal; 2021-02-10)
DX: F10.239 Alcohol dependence with withdrawal, unspecified (principal); F11.20 Opioid dependence, uncomplicated; D61.818 Other pancytopenia; G62.1 Alcoholic polyneuropathy; K74.60 Unspecified cirrhosis of liver; E87.6 Hypokalemia; E66.9 Obesity, unspecified; Z68.31 Body mass index [BMI] 31.0-31.9, adult; R74.01 Elevation of levels of liver transaminase levels
CPT/HCPCS: 36415; 70450-TC; 71046-TC-FY; 76705-TC; 80053; 80307; 81003; 82140; 82172; 82607; 82746; 82977; 83010; 83540; 83550; 83615; 83735; 83883; 84100; 84443; 84460; 85025; 85027; 85045; 85610; 85730; 86705; 86706; 86707; 86708; 87350; 87517; 93005; 93010; 93306-TC; 93970-TC; 99285-25; C9803; G0378; U0003; U0005

== ENCOUNTER 2021-02-12 15:58 | Inpatient (IN) | payer OTHER ==
[2021-02-12 16:37] VITALS: BMI 31.7
[2021-02-12] MEDS ORDERED: MAGNESIUM HYDROX 2400MG/30ML ORAL SUSPENSION 30 ML CUP PO PRN (16:38)
[2021-02-12] MEDS ORDERED: MAGNESIUM CITRATE 300 ML BOTTLE PO PRN (16:38)
[2021-02-12] MEDS ORDERED: IBUPROFEN 400 MG TABLET (FP) PO PRN (16:38)
[2021-02-12] MEDS ORDERED: guaiFENesin 200 MG/10 ML 10 ML UNIT-DOSE CUPS PO PRN (16:38)
[2021-02-12] MEDS ORDERED: P-EPHED 60MG/TRIPROLIDI 2.5MG TABLET PO PRN (16:38)
[2021-02-12] MEDS ORDERED: MAG HYDROX/AL HYDROX/SIMETH 30 ML UNIT-DOSE CUP PO PRN (16:38)
[2021-02-12] MEDS ORDERED: LOPERAMIDE HCL 2 MG CAPSULE PO PRN (16:38)
[2021-02-12] MEDS: hydrOXYzine PAMOATE 25 MG CAPSULE (FP) PO PRN ×2 (19:16→23:18)
[2021-02-12] MEDS: MUPIROCIN 2% TOPICAL OINTMENT 22 GM TUBE TP SCH (21:15)
[2021-02-12] MEDS: THIAMINE HCL 100 MG TABLET (FP) PO SCH (21:16)
[2021-02-12] MEDS: LACTULOSE 20 GM/30 ML UDC (FOR ORAL USE ONLY) PO SCH (21:17)
[2021-02-12] MEDS ORDERED: MELATONIN 5 MG TABLETS PO SCH (22:00)
[2021-02-12] MEDS: TRIAMCINOLONE ACET 0.1% OINT 15 GM TUBE TP SCH (23:42)
[2021-02-13 00:22] LABS: URINE APPEARANCE CLEAR; URINE BILIRUBIN 1+ (NEGATIVE); URINE COLOR DK YELLOW; URINE GLUCOSE (UA) NEGATIVE (NEGATIVE); URINE KETONE TRACE (NEGATIVE); URINE LEUK ESTERASE NEGATIVE (NEGATIVE); URINE NITRITE NEGATIVE (NEGATIVE); URINE PROTEIN NEGATIVE (NEGATIVE); URINE UROBILINOGEN 4.0 E.U/dl mg/dL (0.2-1.0)
[2021-02-13] MEDS ORDERED: methaDONE HCL 40 MG DISPERSABLE TABLET ONE (06:06)
[2021-02-13] MEDS ORDERED: methaDONE HCL 10 MG TABLET ONE (06:06)
[2021-02-13] MEDS: MUPIROCIN 2% TOPICAL OINTMENT 22 GM TUBE TP SCH ×3 (06:39→21:18)
[2021-02-13] MEDS: LACTULOSE 20 GM/30 ML UDC (FOR ORAL USE ONLY) PO SCH ×3 (06:39→21:18)
[2021-02-13] MEDS: hydrOXYzine PAMOATE 25 MG CAPSULE (FP) PO PRN (08:56)
[2021-02-13] MEDS: PRENATAL VITAMINS W/ FOLIC ACID TABLET (FP) PO SCH (10:31)
[2021-02-13] MEDS: TRIAMCINOLONE ACET 0.1% OINT 15 GM TUBE TP SCH ×2 (10:33→21:20)
[2021-02-13] MEDS: FERROUS SO4 325 MG TABLET (FP) PO SCH ×2 (12:08→17:40)
[2021-02-13] MEDS: hydrOXYzine PAMOATE 50 MG CAPSULE (FP) PO PRN ×2 (15:24→21:40)
[2021-02-13] MEDS: THIAMINE HCL 100 MG TABLET (FP) PO SCH (21:19)
[2021-02-13] MEDS ORDERED: SUVOREXANT 10 MG TABLET PO PRN (22:00)
[2021-02-14] MEDS ORDERED: methaDONE HCL 40 MG DISPERSABLE TABLET ONE (03:15)
[2021-02-14] MEDS ORDERED: methaDONE HCL 10 MG TABLET ONE (03:16)
[2021-02-14] MEDS: MUPIROCIN 2% TOPICAL OINTMENT 22 GM TUBE TP SCH ×3 (06:21→21:25)
[2021-02-14] MEDS: LACTULOSE 20 GM/30 ML UDC (FOR ORAL USE ONLY) PO SCH ×3 (06:21→21:25)
[2021-02-14] MEDS: FERROUS SO4 325 MG TABLET (FP) PO SCH ×3 (07:10→17:57)
[2021-02-14] MEDS: hydrOXYzine PAMOATE 50 MG CAPSULE (FP) PO PRN ×3 (10:09→21:27)
[2021-02-14] MEDS: PRENATAL VITAMINS W/ FOLIC ACID TABLET (FP) PO SCH (10:09)
[2021-02-14] MEDS: TRIAMCINOLONE ACET 0.1% OINT 15 GM TUBE TP SCH ×2 (10:50→21:25)
[2021-02-14] MEDS: THIAMINE HCL 100 MG TABLET (FP) PO SCH (21:25)
[2021-02-15] MEDS ORDERED: methaDONE HCL 40 MG DISPERSABLE TABLET ONE (02:58)
[2021-02-15] MEDS ORDERED: methaDONE HCL 10 MG TABLET ONE (02:58)
[2021-02-15] MEDS: MUPIROCIN 2% TOPICAL OINTMENT 22 GM TUBE TP SCH ×3 (06:12→21:55)
[2021-02-15] MEDS: LACTULOSE 20 GM/30 ML UDC (FOR ORAL USE ONLY) PO SCH ×3 (06:12→21:56)
[2021-02-15] MEDS: FERROUS SO4 325 MG TABLET (FP) PO SCH ×3 (07:11→17:03)
[2021-02-15] MEDS: PRENATAL VITAMINS W/ FOLIC ACID TABLET (FP) PO SCH (10:00)
[2021-02-15] MEDS: TRIAMCINOLONE ACET 0.1% OINT 15 GM TUBE TP SCH ×2 (10:01→21:56)
[2021-02-15] MEDS: cloNIDine HCL 0.1 MG TABLET PO SCH ×2 (12:06→21:55)
[2021-02-15 17:03] LABS: ALBUMIN 3.4 g/dl (3.4-5.0)
[2021-02-15 17:04] LABS: BILIRUBIN,TOTAL 1.7 mg/dL (0.2-1); TOT PROT 7.7 g/dl (6.4-8.2)
[2021-02-15] MEDS: THIAMINE HCL 100 MG TABLET (FP) PO SCH (21:55)
[2021-02-16] MEDS ORDERED: methaDONE HCL 10 MG TABLET ONE (03:10)
[2021-02-16] MEDS ORDERED: methaDONE HCL 40 MG DISPERSABLE TABLET ONE (03:10)
[2021-02-16] MEDS: MUPIROCIN 2% TOPICAL OINTMENT 22 GM TUBE TP SCH ×3 (06:05→21:18)
[2021-02-16] MEDS: LACTULOSE 20 GM/30 ML UDC (FOR ORAL USE ONLY) PO SCH ×3 (06:07→21:17)
[2021-02-16] MEDS: FERROUS SO4 325 MG TABLET (FP) PO SCH ×3 (08:24→17:35)
[2021-02-16] MEDS: PRENATAL VITAMINS W/ FOLIC ACID TABLET (FP) PO SCH (10:23)
[2021-02-16] MEDS: cloNIDine HCL 0.1 MG TABLET PO SCH ×2 (10:24→21:17)
[2021-02-16] MEDS: hydrOXYzine PAMOATE 50 MG CAPSULE (FP) PO PRN ×2 (10:26→13:32)
[2021-02-16] MEDS: TRIAMCINOLONE ACET 0.1% OINT 15 GM TUBE TP SCH ×2 (10:26→21:18)
[2021-02-16] MEDS: THIAMINE HCL 100 MG TABLET (FP) PO SCH (21:16)
[2021-02-17] MEDS ORDERED: methaDONE HCL 40 MG DISPERSABLE TABLET ONE (03:13)
[2021-02-17] MEDS ORDERED: methaDONE HCL 10 MG TABLET ONE (03:13)
[2021-02-17] MEDS: hydrOXYzine PAMOATE 50 MG CAPSULE (FP) PO PRN (03:38)
[2021-02-17] MEDS: LACTULOSE 20 GM/30 ML UDC (FOR ORAL USE ONLY) PO SCH ×3 (06:18→21:32)
[2021-02-17] MEDS: MUPIROCIN 2% TOPICAL OINTMENT 22 GM TUBE TP SCH ×3 (06:18→21:31)
[2021-02-17] MEDS: FERROUS SO4 325 MG TABLET (FP) PO SCH ×3 (08:02→17:35)
[2021-02-17] MEDS: PRENATAL VITAMINS W/ FOLIC ACID TABLET (FP) PO SCH (09:52)
[2021-02-17] MEDS: cloNIDine HCL 0.1 MG TABLET PO SCH ×2 (09:52→21:31)
[2021-02-17] MEDS: TRIAMCINOLONE ACET 0.1% OINT 15 GM TUBE TP SCH ×2 (09:52→21:31)
[2021-02-17 14:08] LABS: SARS-CoV-2 NAA Not Detected (Not Detected)
[2021-02-17] MEDS: THIAMINE HCL 100 MG TABLET (FP) PO SCH (21:30)
[2021-02-17] MEDS: SUVOREXANT 10 MG TABLET PO PRN (21:31)
[2021-02-18] MEDS ORDERED: methaDONE HCL 10 MG TABLET ONE (03:11)
[2021-02-18] MEDS ORDERED: methaDONE HCL 40 MG DISPERSABLE TABLET ONE (03:11)
[2021-02-18] MEDS: MUPIROCIN 2% TOPICAL OINTMENT 22 GM TUBE TP SCH ×3 (06:12→21:09)
[2021-02-18] MEDS: LACTULOSE 20 GM/30 ML UDC (FOR ORAL USE ONLY) PO SCH ×3 (06:12→21:09)
[2021-02-18] MEDS: FERROUS SO4 325 MG TABLET (FP) PO SCH ×3 (07:08→18:06)
[2021-02-18] MEDS: TRIAMCINOLONE ACET 0.1% OINT 15 GM TUBE TP SCH ×2 (09:59→21:09)
[2021-02-18] MEDS: cloNIDine HCL 0.1 MG TABLET PO SCH ×2 (09:59→21:09)
[2021-02-18] MEDS: PRENATAL VITAMINS W/ FOLIC ACID TABLET (FP) PO SCH (09:59)
[2021-02-18] MEDS: hydrOXYzine PAMOATE 50 MG CAPSULE (FP) PO PRN (14:25)
[2021-02-18] MEDS: THIAMINE HCL 100 MG TABLET (FP) PO SCH (21:06)
[2021-02-18] MEDS: SUVOREXANT 10 MG TABLET PO PRN (21:08)
[2021-02-19] MEDS ORDERED: methaDONE HCL 10 MG TABLET ONE (03:11)
[2021-02-19] MEDS ORDERED: methaDONE HCL 40 MG DISPERSABLE TABLET ONE (03:11)
[2021-02-19] MEDS: MUPIROCIN 2% TOPICAL OINTMENT 22 GM TUBE TP SCH ×3 (06:18→21:33)
[2021-02-19] MEDS: LACTULOSE 20 GM/30 ML UDC (FOR ORAL USE ONLY) PO SCH ×3 (06:18→21:32)
[2021-02-19] MEDS: FERROUS SO4 325 MG TABLET (FP) PO SCH ×3 (07:33→17:55)
[2021-02-19] MEDS: cloNIDine HCL 0.1 MG TABLET PO SCH ×2 (10:52→21:32)
[2021-02-19] MEDS: PRENATAL VITAMINS W/ FOLIC ACID TABLET (FP) PO SCH (10:53)
[2021-02-19] MEDS: TRIAMCINOLONE ACET 0.1% OINT 15 GM TUBE TP SCH ×2 (10:53→21:33)
[2021-02-19] MEDS: hydrOXYzine PAMOATE 50 MG CAPSULE (FP) PO PRN (10:55)
[2021-02-19] MEDS: SUVOREXANT 10 MG TABLET PO PRN (21:32)
[2021-02-19] MEDS: THIAMINE HCL 100 MG TABLET (FP) PO SCH (21:32)
[2021-02-20] MEDS: hydrOXYzine PAMOATE 50 MG CAPSULE (FP) PO PRN ×4 (01:42→21:13)
[2021-02-20] MEDS ORDERED: PT OWN MED DRAWER 7, Y5N ONE (03:25)
[2021-02-20] MEDS ORDERED: methaDONE HCL 40 MG DISPERSABLE TABLET ONE (04:08)
[2021-02-20] MEDS ORDERED: methaDONE HCL 10 MG TABLET ONE (04:09)
[2021-02-20] MEDS: LACTULOSE 20 GM/30 ML UDC (FOR ORAL USE ONLY) PO SCH ×3 (06:29→21:11)
[2021-02-20] MEDS: MUPIROCIN 2% TOPICAL OINTMENT 22 GM TUBE TP SCH ×3 (06:29→21:12)
[2021-02-20] MEDS: FERROUS SO4 325 MG TABLET (FP) PO SCH ×3 (07:15→17:03)
[2021-02-20] MEDS: cloNIDine HCL 0.1 MG TABLET PO SCH ×2 (09:56→21:12)
[2021-02-20] MEDS: PRENATAL VITAMINS W/ FOLIC ACID TABLET (FP) PO SCH (09:56)
[2021-02-20] MEDS: TRIAMCINOLONE ACET 0.1% OINT 15 GM TUBE TP SCH ×2 (10:35→21:12)
[2021-02-20] MEDS: THIAMINE HCL 100 MG TABLET (FP) PO SCH (21:13)
[2021-02-20] MEDS: SUVOREXANT 10 MG TABLET PO PRN (21:13)
[2021-02-21] MEDS ORDERED: methaDONE HCL 40 MG DISPERSABLE TABLET ONE (03:02)
[2021-02-21] MEDS ORDERED: methaDONE HCL 10 MG TABLET ONE (03:02)
[2021-02-21] MEDS: MUPIROCIN 2% TOPICAL OINTMENT 22 GM TUBE TP SCH ×3 (06:30→21:17)
[2021-02-21] MEDS: LACTULOSE 20 GM/30 ML UDC (FOR ORAL USE ONLY) PO SCH ×3 (06:30→21:18)
[2021-02-21] MEDS: FERROUS SO4 325 MG TABLET (FP) PO SCH ×3 (08:04→17:55)
[2021-02-21] MEDS: PRENATAL VITAMINS W/ FOLIC ACID TABLET (FP) PO SCH (10:20)
[2021-02-21] MEDS: cloNIDine HCL 0.1 MG TABLET PO SCH ×3 (10:20→21:17)
[2021-02-21] MEDS: TRIAMCINOLONE ACET 0.1% OINT 15 GM TUBE TP SCH ×2 (10:20→21:18)
[2021-02-21] MEDS: hydrOXYzine PAMOATE 50 MG CAPSULE (FP) PO PRN ×2 (10:21→23:04)
[2021-02-21] MEDS: THIAMINE HCL 100 MG TABLET (FP) PO SCH (21:16)
[2021-02-21] MEDS: SUVOREXANT 10 MG TABLET PO PRN (21:17)
[2021-02-22] MEDS ORDERED: methaDONE HCL 40 MG DISPERSABLE TABLET ONE (03:04)
[2021-02-22] MEDS ORDERED: methaDONE HCL 10 MG TABLET ONE (03:04)
[2021-02-22] MEDS: MUPIROCIN 2% TOPICAL OINTMENT 22 GM TUBE TP SCH ×3 (06:20→21:07)
[2021-02-22] MEDS: LACTULOSE 20 GM/30 ML UDC (FOR ORAL USE ONLY) PO SCH ×3 (06:20→21:07)
[2021-02-22] MEDS: FERROUS SO4 325 MG TABLET (FP) PO SCH ×3 (07:00→18:45)
[2021-02-22] MEDS: cloNIDine HCL 0.1 MG TABLET PO SCH ×2 (09:45→21:07)
[2021-02-22] MEDS: TRIAMCINOLONE ACET 0.1% OINT 15 GM TUBE TP SCH ×2 (09:45→21:07)
[2021-02-22] MEDS: PRENATAL VITAMINS W/ FOLIC ACID TABLET (FP) PO SCH (09:45)
[2021-02-22] MEDS: hydrOXYzine PAMOATE 50 MG CAPSULE (FP) PO PRN ×3 (09:45→21:07)
[2021-02-22] MEDS: THIAMINE HCL 100 MG TABLET (FP) PO SCH (21:05)
[2021-02-22] MEDS: SUVOREXANT 10 MG TABLET PO PRN (21:06)
[2021-02-23] MEDS ORDERED: methaDONE HCL 10 MG TABLET ONE (03:04)
[2021-02-23] MEDS ORDERED: methaDONE HCL 40 MG DISPERSABLE TABLET ONE (03:04)
[2021-02-23] MEDS: MUPIROCIN 2% TOPICAL OINTMENT 22 GM TUBE TP SCH ×3 (06:15→21:10)
[2021-02-23] MEDS: LACTULOSE 20 GM/30 ML UDC (FOR ORAL USE ONLY) PO SCH ×3 (06:15→21:10)
[2021-02-23] MEDS: hydrOXYzine PAMOATE 50 MG CAPSULE (FP) PO PRN ×3 (06:15→21:10)
[2021-02-23] MEDS: FERROUS SO4 325 MG TABLET (FP) PO SCH ×3 (07:25→17:40)
[2021-02-23] MEDS: cloNIDine HCL 0.1 MG TABLET PO SCH ×2 (10:04→21:08)
[2021-02-23] MEDS: PRENATAL VITAMINS W/ FOLIC ACID TABLET (FP) PO SCH (10:04)
[2021-02-23] MEDS: TRIAMCINOLONE ACET 0.1% OINT 15 GM TUBE TP SCH ×2 (10:04→21:10)
[2021-02-23] MEDS ORDERED: PT OWN MED DRAWER 7, Y5N ONE (19:44)
[2021-02-23] MEDS: THIAMINE HCL 100 MG TABLET (FP) PO SCH (21:08)
[2021-02-23] MEDS: SUVOREXANT 10 MG TABLET PO PRN (21:09)
[2021-02-24] MEDS ORDERED: methaDONE HCL 40 MG DISPERSABLE TABLET ONE (03:16)
[2021-02-24] MEDS ORDERED: methaDONE HCL 10 MG TABLET ONE (03:17)
[2021-02-24] MEDS: FERROUS SO4 325 MG TABLET (FP) PO SCH ×3 (07:11→17:42)
[2021-02-24] MEDS: LACTULOSE 20 GM/30 ML UDC (FOR ORAL USE ONLY) PO SCH ×3 (07:11→21:41)
[2021-02-24] MEDS: MUPIROCIN 2% TOPICAL OINTMENT 22 GM TUBE TP SCH ×3 (07:11→21:42)
[2021-02-24] MEDS ORDERED: PT OWN MED DRAWER 7, Y5N ONE (07:11)
[2021-02-24] MEDS: PRENATAL VITAMINS W/ FOLIC ACID TABLET (FP) PO SCH (09:42)
[2021-02-24] MEDS: hydrOXYzine PAMOATE 50 MG CAPSULE (FP) PO PRN ×2 (09:43→21:41)
[2021-02-24] MEDS: TRIAMCINOLONE ACET 0.1% OINT 15 GM TUBE TP SCH ×2 (10:36→21:43)
[2021-02-24] MEDS: cloNIDine HCL 0.1 MG TABLET PO SCH ×2 (10:36→21:43)
[2021-02-24] MEDS: THIAMINE HCL 100 MG TABLET (FP) PO SCH (21:39)
[2021-02-24] MEDS: SUVOREXANT 10 MG TABLET PO PRN (21:40)
[2021-02-25] MEDS ORDERED: methaDONE HCL 40 MG DISPERSABLE TABLET ONE (03:14)
[2021-02-25] MEDS ORDERED: methaDONE HCL 10 MG TABLET ONE (03:14)
[2021-02-25] MEDS: MUPIROCIN 2% TOPICAL OINTMENT 22 GM TUBE TP SCH ×3 (06:38→21:08)
[2021-02-25] MEDS: LACTULOSE 20 GM/30 ML UDC (FOR ORAL USE ONLY) PO SCH ×3 (06:39→22:01)
[2021-02-25] MEDS: FERROUS SO4 325 MG TABLET (FP) PO SCH ×3 (07:26→17:19)
[2021-02-25] MEDS: hydrOXYzine PAMOATE 50 MG CAPSULE (FP) PO PRN ×3 (10:12→21:09)
[2021-02-25] MEDS: PRENATAL VITAMINS W/ FOLIC ACID TABLET (FP) PO SCH (10:12)
[2021-02-25] MEDS: cloNIDine HCL 0.1 MG TABLET PO SCH ×2 (10:13→21:08)
[2021-02-25] MEDS: TRIAMCINOLONE ACET 0.1% OINT 15 GM TUBE TP SCH ×2 (10:13→21:08)
[2021-02-25] MEDS: THIAMINE HCL 100 MG TABLET (FP) PO SCH (21:07)
[2021-02-25] MEDS: SUVOREXANT 10 MG TABLET PO PRN (21:07)
[2021-02-26] MEDS: hydrOXYzine PAMOATE 50 MG CAPSULE (FP) PO PRN ×2 (01:37→21:33)
[2021-02-26] MEDS ORDERED: methaDONE HCL 40 MG DISPERSABLE TABLET ONE (03:09)
[2021-02-26] MEDS ORDERED: methaDONE HCL 10 MG TABLET ONE (03:09)
[2021-02-26] MEDS: LACTULOSE 20 GM/30 ML UDC (FOR ORAL USE ONLY) PO SCH ×3 (06:37→21:33)
[2021-02-26] MEDS: MUPIROCIN 2% TOPICAL OINTMENT 22 GM TUBE TP SCH ×3 (06:37→21:33)
[2021-02-26] MEDS: FERROUS SO4 325 MG TABLET (FP) PO SCH ×3 (07:09→18:30)
[2021-02-26] MEDS: cloNIDine HCL 0.1 MG TABLET PO SCH ×2 (10:30→21:32)
[2021-02-26] MEDS: PRENATAL VITAMINS W/ FOLIC ACID TABLET (FP) PO SCH (10:30)
[2021-02-26] MEDS: TRIAMCINOLONE ACET 0.1% OINT 15 GM TUBE TP SCH ×2 (10:30→21:33)
[2021-02-26] MEDS: THIAMINE HCL 100 MG TABLET (FP) PO SCH (21:31)
[2021-02-26] MEDS: SUVOREXANT 10 MG TABLET PO PRN (21:32)
[2021-02-27] MEDS ORDERED: methaDONE HCL 10 MG TABLET ONE (03:09)
[2021-02-27] MEDS ORDERED: methaDONE HCL 40 MG DISPERSABLE TABLET ONE (03:09)
[2021-02-27] MEDS: MUPIROCIN 2% TOPICAL OINTMENT 22 GM TUBE TP SCH ×3 (06:20→21:09)
[2021-02-27] MEDS: LACTULOSE 20 GM/30 ML UDC (FOR ORAL USE ONLY) PO SCH ×3 (06:20→21:09)
[2021-02-27] MEDS: FERROUS SO4 325 MG TABLET (FP) PO SCH ×3 (07:22→17:30)
[2021-02-27] MEDS: cloNIDine HCL 0.1 MG TABLET PO SCH ×2 (09:52→21:07)
[2021-02-27] MEDS: PRENATAL VITAMINS W/ FOLIC ACID TABLET (FP) PO SCH (09:52)
[2021-02-27] MEDS: TRIAMCINOLONE ACET 0.1% OINT 15 GM TUBE TP SCH ×2 (09:52→21:09)
[2021-02-27] MEDS: hydrOXYzine PAMOATE 50 MG CAPSULE (FP) PO PRN ×2 (09:53→21:08)
[2021-02-27] MEDS: THIAMINE HCL 100 MG TABLET (FP) PO SCH (21:07)
[2021-02-27] MEDS: SUVOREXANT 10 MG TABLET PO PRN (21:08)
[2021-02-28] MEDS ORDERED: methaDONE HCL 10 MG TABLET ONE (03:12)
[2021-02-28] MEDS ORDERED: methaDONE HCL 40 MG DISPERSABLE TABLET ONE (03:12)
[2021-02-28] MEDS: LACTULOSE 20 GM/30 ML UDC (FOR ORAL USE ONLY) PO SCH ×3 (06:13→21:24)
[2021-02-28] MEDS: MUPIROCIN 2% TOPICAL OINTMENT 22 GM TUBE TP SCH ×3 (06:13→21:24)
[2021-02-28] MEDS: FERROUS SO4 325 MG TABLET (FP) PO SCH ×3 (07:14→17:25)
[2021-02-28] MEDS: cloNIDine HCL 0.1 MG TABLET PO SCH ×2 (10:33→21:24)
[2021-02-28] MEDS: PRENATAL VITAMINS W/ FOLIC ACID TABLET (FP) PO SCH (10:33)
[2021-02-28] MEDS: TRIAMCINOLONE ACET 0.1% OINT 15 GM TUBE TP SCH ×2 (10:33→21:24)
[2021-02-28] MEDS: hydrOXYzine PAMOATE 50 MG CAPSULE (FP) PO PRN ×2 (10:34→21:24)
[2021-02-28] MEDS: THIAMINE HCL 100 MG TABLET (FP) PO SCH (21:23)
[2021-02-28] MEDS: SUVOREXANT 10 MG TABLET PO PRN (21:24)
[2021-03-01] MEDS ORDERED: methaDONE HCL 40 MG DISPERSABLE TABLET ONE (03:10)
[2021-03-01] MEDS ORDERED: methaDONE HCL 10 MG TABLET ONE (03:10)
[2021-03-01] MEDS: MUPIROCIN 2% TOPICAL OINTMENT 22 GM TUBE TP SCH ×3 (06:25→21:04)
[2021-03-01] MEDS: LACTULOSE 20 GM/30 ML UDC (FOR ORAL USE ONLY) PO SCH ×3 (06:26→21:05)
[2021-03-01] MEDS: FERROUS SO4 325 MG TABLET (FP) PO SCH ×3 (07:09→17:02)
[2021-03-01] MEDS: PRENATAL VITAMINS W/ FOLIC ACID TABLET (FP) PO SCH (10:14)
[2021-03-01] MEDS: TRIAMCINOLONE ACET 0.1% OINT 15 GM TUBE TP SCH ×2 (10:14→21:04)
[2021-03-01] MEDS: cloNIDine HCL 0.1 MG TABLET PO SCH ×2 (10:15→21:04)
[2021-03-01] MEDS: hydrOXYzine PAMOATE 50 MG CAPSULE (FP) PO PRN ×2 (10:15→21:06)
[2021-03-01] MEDS: THIAMINE HCL 100 MG TABLET (FP) PO SCH (21:04)
[2021-03-01] MEDS: SUVOREXANT 10 MG TABLET PO PRN (21:06)
[2021-03-02] MEDS ORDERED: methaDONE HCL 40 MG DISPERSABLE TABLET ONE (03:54)
[2021-03-02] MEDS ORDERED: methaDONE HCL 10 MG TABLET ONE (03:55)
[2021-03-02] MEDS: LACTULOSE 20 GM/30 ML UDC (FOR ORAL USE ONLY) PO SCH ×3 (06:17→21:29)
[2021-03-02] MEDS: MUPIROCIN 2% TOPICAL OINTMENT 22 GM TUBE TP SCH ×3 (06:17→21:32)
[2021-03-02] MEDS: FERROUS SO4 325 MG TABLET (FP) PO SCH ×3 (08:50→17:46)
[2021-03-02] MEDS: cloNIDine HCL 0.1 MG TABLET PO SCH ×2 (10:04→21:32)
[2021-03-02] MEDS: PRENATAL VITAMINS W/ FOLIC ACID TABLET (FP) PO SCH (10:04)
[2021-03-02] MEDS: TRIAMCINOLONE ACET 0.1% OINT 15 GM TUBE TP SCH ×2 (10:05→21:32)
[2021-03-02] MEDS: hydrOXYzine PAMOATE 50 MG CAPSULE (FP) PO PRN ×2 (10:05→21:32)
[2021-03-02] MEDS: THIAMINE HCL 100 MG TABLET (FP) PO SCH (21:30)
[2021-03-02] MEDS: SUVOREXANT 10 MG TABLET PO PRN (21:31)
[2021-03-03] MEDS ORDERED: methaDONE HCL 10 MG TABLET ONE (03:01)
[2021-03-03] MEDS ORDERED: methaDONE HCL 40 MG DISPERSABLE TABLET ONE (03:01)
[2021-03-03] MEDS: MUPIROCIN 2% TOPICAL OINTMENT 22 GM TUBE TP SCH ×3 (06:00→21:08)
[2021-03-03] MEDS: LACTULOSE 20 GM/30 ML UDC (FOR ORAL USE ONLY) PO SCH ×3 (06:00→21:09)
[2021-03-03] MEDS: FERROUS SO4 325 MG TABLET (FP) PO SCH ×3 (07:10→16:48)
[2021-03-03] MEDS: PRENATAL VITAMINS W/ FOLIC ACID TABLET (FP) PO SCH (09:41)
[2021-03-03] MEDS: cloNIDine HCL 0.1 MG TABLET PO SCH ×2 (09:41→21:09)
[2021-03-03] MEDS: hydrOXYzine PAMOATE 50 MG CAPSULE (FP) PO PRN ×2 (09:42→21:11)
[2021-03-03] MEDS: TRIAMCINOLONE ACET 0.1% OINT 15 GM TUBE TP SCH ×2 (12:30→21:08)
[2021-03-03] MEDS: THIAMINE HCL 100 MG TABLET (FP) PO SCH (21:07)
[2021-03-03] MEDS: SUVOREXANT 10 MG TABLET PO PRN (22:01)
[2021-03-04] MEDS ORDERED: methaDONE HCL 40 MG DISPERSABLE TABLET ONE (03:06)
[2021-03-04] MEDS ORDERED: methaDONE HCL 10 MG TABLET ONE (03:07)
[2021-03-04] MEDS: MUPIROCIN 2% TOPICAL OINTMENT 22 GM TUBE TP SCH ×3 (06:26→22:29)
[2021-03-04] MEDS: LACTULOSE 20 GM/30 ML UDC (FOR ORAL USE ONLY) PO SCH ×3 (06:26→21:51)
[2021-03-04] MEDS: FERROUS SO4 325 MG TABLET (FP) PO SCH ×3 (07:07→18:00)
[2021-03-04] MEDS: PRENATAL VITAMINS W/ FOLIC ACID TABLET (FP) PO SCH (10:15)
[2021-03-04] MEDS: cloNIDine HCL 0.1 MG TABLET PO SCH ×2 (10:15→22:29)
[2021-03-04] MEDS: TRIAMCINOLONE ACET 0.1% OINT 15 GM TUBE TP SCH ×2 (10:15→21:55)
[2021-03-04] MEDS: hydrOXYzine PAMOATE 50 MG CAPSULE (FP) PO PRN (10:16)
[2021-03-04] MEDS: THIAMINE HCL 100 MG TABLET (FP) PO SCH (21:51)
[2021-03-04] MEDS: SUVOREXANT 10 MG TABLET PO PRN (21:53)
[2021-03-05] MEDS ORDERED: methaDONE HCL 10 MG TABLET ONE (03:07)
[2021-03-05] MEDS ORDERED: methaDONE HCL 40 MG DISPERSABLE TABLET ONE (03:07)
[2021-03-05] MEDS: MUPIROCIN 2% TOPICAL OINTMENT 22 GM TUBE TP SCH ×3 (06:13→21:11)
[2021-03-05] MEDS: LACTULOSE 20 GM/30 ML UDC (FOR ORAL USE ONLY) PO SCH ×3 (06:13→21:09)
[2021-03-05] MEDS: FERROUS SO4 325 MG TABLET (FP) PO SCH ×3 (07:07→17:37)
[2021-03-05] MEDS: TRIAMCINOLONE ACET 0.1% OINT 15 GM TUBE TP SCH ×2 (09:53→21:10)
[2021-03-05] MEDS: hydrOXYzine PAMOATE 50 MG CAPSULE (FP) PO PRN ×2 (09:53→21:09)
[2021-03-05] MEDS: PRENATAL VITAMINS W/ FOLIC ACID TABLET (FP) PO SCH (09:53)
[2021-03-05] MEDS: cloNIDine HCL 0.1 MG TABLET PO SCH ×2 (09:53→21:10)
[2021-03-05] MEDS: THIAMINE HCL 100 MG TABLET (FP) PO SCH (21:07)
[2021-03-05] MEDS: SUVOREXANT 10 MG TABLET PO PRN (21:08)
[2021-03-06] MEDS ORDERED: methaDONE HCL 40 MG DISPERSABLE TABLET ONE (04:02)
[2021-03-06] MEDS ORDERED: methaDONE HCL 10 MG TABLET ONE (04:03)
[2021-03-06] MEDS: LACTULOSE 20 GM/30 ML UDC (FOR ORAL USE ONLY) PO SCH (06:48)
[2021-03-06] MEDS: MUPIROCIN 2% TOPICAL OINTMENT 22 GM TUBE TP SCH (06:48)
[2021-03-06] MEDS: FERROUS SO4 325 MG TABLET (FP) PO SCH (07:13)
[2021-03-06 07:29] VITALS: BP 118/69; PULSE 63; TEMP 96.2
[2021-03-06] MEDS: hydrOXYzine PAMOATE 50 MG CAPSULE (FP) PO PRN (08:10)
[2021-03-06] MEDS ORDERED: SUVOREXANT 10 MG TABLET PO PRN (22:00)
== END 2021-03-06 09:33 | disposition home or self-care (01) | DRG 772 ==
LOC: YASAS 15:58 → Y3W 16:52
PROVIDERS: ADMIT Allergy & Immunology; ATTEND Allergy & Immunology
PROC: HZ42ZZZ Group Counseling for Substance Abuse Treatment, Cognitive-Behavioral (ICD-10-PCS; principal; 2021-02-12)
DX: F10.20 Alcohol dependence, uncomplicated (principal); F11.20 Opioid dependence, uncomplicated; F10.24 Alcohol dependence with alcohol-induced mood disorder; F41.9 Anxiety disorder, unspecified; F10.282 Alcohol dependence with alcohol-induced sleep disorder; D64.9 Anemia, unspecified; E78.5 Hyperlipidemia, unspecified; I10 Essential (primary) hypertension; Z86.11 Personal history of tuberculosis; Z88.8 Allergy status to other drugs, medicaments and biological substances
CPT/HCPCS: 36415; 80076; 81003; 82140; 82728; 82962; C9803; J0735; U0003; U0005

== ENCOUNTER 2021-08-03 12:36 | Inpatient (IN) | payer OTHER ==
[2021-08-03] MEDS ORDERED: IBUPROFEN 400 MG TABLET (FP) PO PRN ×2 (12:50→12:53)
[2021-08-03] MEDS ORDERED: MAG HYDROX/AL HYDROX/SIMETH 30 ML UNIT-DOSE CUP PO PRN (12:50)
[2021-08-03] MEDS ORDERED: P-EPHED 60MG/TRIPROLIDI 2.5MG TABLET PO PRN (12:50)
[2021-08-03] MEDS ORDERED: LOPERAMIDE HCL 2 MG CAPSULE PO PRN (12:50)
[2021-08-03] MEDS ORDERED: MAGNESIUM HYDROX 2400MG/30ML ORAL SUSPENSION 30 ML CUP PO PRN (12:50)
[2021-08-03] MEDS ORDERED: LORazepam 1 MG TABLET PO PRN (12:50)
[2021-08-03] MEDS ORDERED: MENTHOL/PHENOL 1 EACH UD MM PRN (12:50)
[2021-08-03] MEDS ORDERED: NICOTINE 10 MG CARTRIDGE (INHALER) IH PRN ×2 (12:50→12:53)
[2021-08-03] MEDS ORDERED: ACETAMINOPHEN 325 MG TABLET (FP) PO PRN ×3 (12:50→12:53)
[2021-08-03] MEDS ORDERED: MAGNESIUM CITRATE 300 ML BOTTLE PO PRN (12:50)
[2021-08-03] MEDS ORDERED: guaiFENesin 200 MG/10 ML 10 ML UNIT-DOSE CUPS PO PRN (12:50)
[2021-08-03] MEDS ORDERED: BISMUTH SUBSALICYLATE 262 MG/15 ML BTL PO PRN (12:53)
[2021-08-03] MEDS ORDERED: ONDANSETRON *ODT* 4 MG TABLET SL PRN (12:53)
[2021-08-03] MEDS ORDERED: MELATONIN 5 MG TABLETS PO PRN (12:58)
[2021-08-03 14:21] VITALS: BMI 32.1
[2021-08-03] MEDS: NICOTINE 7 MG/24 HOURS TOPICAL PATCH TD SCH (15:02)
[2021-08-03] MEDS: LORazepam 2 MG TABLET PO SCH ×3 (15:02→22:20)
[2021-08-03] MEDS: LACTULOSE 20 GM/30 ML UDC (FOR ORAL USE ONLY) PO SCH ×2 (15:03→22:21)
[2021-08-03] MEDS: MUPIROCIN 2% TOPICAL OINTMENT 22 GM TUBE TP SCH ×2 (15:03→23:11)
[2021-08-03] MEDS: hydrOXYzine PAMOATE 25 MG CAPSULE (FP) PO SCH ×3 (15:04→22:19)
[2021-08-03] MEDS: PRENATAL VITAMINS W/ FOLIC ACID TABLET (FP) PO SCH (15:04)
[2021-08-03 16:12] LABS: ALBUMIN 3.8 g/dl (3.4-5.0); BLOOD UREA NITROGEN 9.6 mg/dL (7-18)
[2021-08-03 16:13] LABS: BASO % 1.2 % (0-2.0); CALCIUM 9.4 mg/dL (8.5-10.1); EOS % 1.3 % (0-4.5); HEMATOCRIT 38.1 % (35.4-49); HEMOGLOBIN 12.9 GM/dL (11.7-16.9); LYMPH % 20.2 % (8-40); MCH 29.4 pg (25.7-33.7); MCHC 33.9 g/dl (32.0-35.9); MEAN CELL VOLUME 86.9 fl (80-96); MEAN PLT VOLUME 8.1 fl (7.5-11.1); MONO % 10.7 % (3.8-10.2); NEUT % 66.6 % (42.8-82.8); PLATELET COUNT 85 10^3/uL (134-434); RBC 4.38 M/mm3 (4.00-5.60); RDW 15.8 % (11.9-15.9); WHITE BLOOD COUNT 6.2 K/mm3 (4.0-10.0)
[2021-08-03 16:16] LABS: CREATININE 0.6 mg/dL (0.55-1.3)
[2021-08-03 16:18] LABS: BILIRUBIN,TOTAL 2.1 mg/dL (0.2-1); TOT PROT 8.1 g/dl (6.4-8.2)
[2021-08-03] MEDS: FERROUS SO4 325 MG TABLET (FP) PO SCH (17:41)
[2021-08-03] MEDS: METHOCARBAMOL 500 MG TABLET PO PRN (17:43)
[2021-08-03] MEDS: THIAMINE HCL 100 MG TABLET (FP) PO SCH (22:19)
[2021-08-03] MEDS: MELATONIN 5 MG TABLETS PO SCH (22:22)
[2021-08-04] MEDS: LORazepam 2 MG TABLET PO SCH ×4 (05:30→22:21)
[2021-08-04] MEDS: hydrOXYzine PAMOATE 25 MG CAPSULE (FP) PO SCH ×5 (05:30→22:22)
[2021-08-04] MEDS: MUPIROCIN 2% TOPICAL OINTMENT 22 GM TUBE TP SCH ×3 (05:30→22:21)
[2021-08-04] MEDS: LACTULOSE 20 GM/30 ML UDC (FOR ORAL USE ONLY) PO SCH ×3 (05:51→22:22)
[2021-08-04] MEDS: FERROUS SO4 325 MG TABLET (FP) PO SCH ×3 (07:34→17:53)
[2021-08-04] MEDS: PRENATAL VITAMINS W/ FOLIC ACID TABLET (FP) PO SCH (10:32)
[2021-08-04] MEDS: NICOTINE 7 MG/24 HOURS TOPICAL PATCH TD SCH (10:35)
[2021-08-04] MEDS ORDERED: methaDONE HCL 10 MG TABLET PO SCH (11:00)
[2021-08-04] MEDS ORDERED: methaDONE HCL 40 MG DISPERSABLE TABLET ONE (11:43)
[2021-08-04] MEDS ORDERED: methaDONE HCL 10 MG TABLET ONE (11:43)
[2021-08-04] MEDS: methaDONE 40 MG, methaDONE 20 MG PO SCH (11:45)
[2021-08-04] MEDS: MELATONIN 5 MG TABLETS PO SCH (22:22)
[2021-08-04] MEDS: THIAMINE HCL 100 MG TABLET (FP) PO SCH (22:22)
[2021-08-05] MEDS ORDERED: methaDONE HCL 10 MG TABLET ONE (04:14)
[2021-08-05] MEDS ORDERED: methaDONE HCL 40 MG DISPERSABLE TABLET ONE (04:15)
[2021-08-05] MEDS: LACTULOSE 20 GM/30 ML UDC (FOR ORAL USE ONLY) PO SCH ×3 (05:28→22:18)
[2021-08-05] MEDS: methaDONE 40 MG, methaDONE 20 MG PO SCH (05:28)
[2021-08-05] MEDS: MUPIROCIN 2% TOPICAL OINTMENT 22 GM TUBE TP SCH ×3 (05:29→22:17)
[2021-08-05] MEDS: hydrOXYzine PAMOATE 25 MG CAPSULE (FP) PO SCH ×5 (05:29→22:18)
[2021-08-05] MEDS: LORazepam 1 MG TABLET PO SCH ×4 (05:29→22:18)
[2021-08-05] MEDS: FERROUS SO4 325 MG TABLET (FP) PO SCH ×3 (07:01→18:57)
[2021-08-05] MEDS: PRENATAL VITAMINS W/ FOLIC ACID TABLET (FP) PO SCH (10:28)
[2021-08-05] MEDS: NICOTINE 7 MG/24 HOURS TOPICAL PATCH TD SCH (10:28)
[2021-08-05] MEDS: THIAMINE HCL 100 MG TABLET (FP) PO SCH (22:18)
[2021-08-05] MEDS: MELATONIN 5 MG TABLETS PO SCH (22:18)
[2021-08-06] MEDS ORDERED: LORazepam 0.5 MG TABLET PO PRN
[2021-08-06] MEDS ORDERED: methaDONE HCL 10 MG TABLET ONE (04:27)
[2021-08-06] MEDS ORDERED: methaDONE HCL 40 MG DISPERSABLE TABLET ONE (04:27)
[2021-08-06] MEDS: LACTULOSE 20 GM/30 ML UDC (FOR ORAL USE ONLY) PO SCH ×3 (05:54→22:12)
[2021-08-06] MEDS: methaDONE 40 MG, methaDONE 20 MG PO SCH (05:54)
[2021-08-06] MEDS: MUPIROCIN 2% TOPICAL OINTMENT 22 GM TUBE TP SCH ×3 (05:54→22:11)
[2021-08-06] MEDS: hydrOXYzine PAMOATE 25 MG CAPSULE (FP) PO SCH ×5 (05:54→22:14)
[2021-08-06] MEDS: LORazepam 0.5 MG TABLET PO SCH ×4 (05:54→22:11)
[2021-08-06] MEDS: FERROUS SO4 325 MG TABLET (FP) PO SCH ×3 (07:00→17:35)
[2021-08-06] MEDS: PRENATAL VITAMINS W/ FOLIC ACID TABLET (FP) PO SCH (10:47)
[2021-08-06] MEDS: NICOTINE 7 MG/24 HOURS TOPICAL PATCH TD SCH (10:49)
[2021-08-06 16:33] LABS: CALCIUM 8.4 mg/dL (8.5-10.1)
[2021-08-06 16:34] LABS: BLOOD UREA NITROGEN 10.1 mg/dL (7-18)
[2021-08-06 16:37] LABS: CREATININE 0.7 mg/dL (0.55-1.3)
[2021-08-06 16:38] LABS: BILIRUBIN,TOTAL 1.3 mg/dL (0.2-1)
[2021-08-06 16:39] LABS: TOT PROT 6.5 g/dl (6.4-8.2)
[2021-08-06 16:40] LABS: HEMATOCRIT 35.5 % (35.4-49); HEMOGLOBIN 11.6 GM/dL (11.7-16.9); MCH 29.1 pg (25.7-33.7); MCHC 32.6 g/dl (32.0-35.9); MEAN CELL VOLUME 89.2 fl (80-96); MEAN PLT VOLUME 8.6 fl (7.5-11.1); PLATELET COUNT 80 10^3/uL (134-434); RBC 3.98 M/mm3 (4.00-5.60); RDW 16.1 % (11.9-15.9); WHITE BLOOD COUNT 4.4 K/mm3 (4.0-10.0)
[2021-08-06] MEDS: MELATONIN 5 MG TABLETS PO SCH (22:12)
[2021-08-06] MEDS: THIAMINE HCL 100 MG TABLET (FP) PO SCH (22:12)
[2021-08-06] MEDS: MIRTAZAPINE 15 MG TABLET (FP) PO SCH (22:12)
[2021-08-07] MEDS: METHOCARBAMOL 500 MG TABLET PO PRN ×3 (01:21→17:59)
[2021-08-07] MEDS ORDERED: methaDONE HCL 40 MG DISPERSABLE TABLET ONE (04:05)
[2021-08-07] MEDS ORDERED: methaDONE HCL 10 MG TABLET ONE (04:05)
[2021-08-07] MEDS ORDERED: LORazepam 0.5 MG TABLET PO ONE (05:00)
[2021-08-07] MEDS: methaDONE 40 MG, methaDONE 20 MG PO SCH (05:13)
[2021-08-07] MEDS: hydrOXYzine PAMOATE 25 MG CAPSULE (FP) PO SCH ×5 (05:13→22:23)
[2021-08-07] MEDS: MUPIROCIN 2% TOPICAL OINTMENT 22 GM TUBE TP SCH ×3 (05:13→22:22)
[2021-08-07] MEDS: LACTULOSE 20 GM/30 ML UDC (FOR ORAL USE ONLY) PO SCH ×5 (05:13→22:22)
[2021-08-07] MEDS: FERROUS SO4 325 MG TABLET (FP) PO SCH ×3 (07:08→17:57)
[2021-08-07] MEDS: PRENATAL VITAMINS W/ FOLIC ACID TABLET (FP) PO SCH (09:57)
[2021-08-07] MEDS: NICOTINE 7 MG/24 HOURS TOPICAL PATCH TD SCH (09:59)
[2021-08-07] MEDS: MELATONIN 5 MG TABLETS PO SCH (22:22)
[2021-08-07] MEDS: MIRTAZAPINE 15 MG TABLET (FP) PO SCH (22:23)
[2021-08-07] MEDS: THIAMINE HCL 100 MG TABLET (FP) PO SCH (22:23)
[2021-08-08] MEDS ORDERED: methaDONE HCL 10 MG TABLET ONE (04:03)
[2021-08-08] MEDS ORDERED: methaDONE HCL 40 MG DISPERSABLE TABLET ONE (04:03)
[2021-08-08] MEDS: hydrOXYzine PAMOATE 25 MG CAPSULE (FP) PO SCH ×5 (05:00→22:20)
[2021-08-08] MEDS: methaDONE 40 MG, methaDONE 20 MG PO SCH (05:00)
[2021-08-08] MEDS: MUPIROCIN 2% TOPICAL OINTMENT 22 GM TUBE TP SCH ×3 (05:04→23:21)
[2021-08-08] MEDS: FERROUS SO4 325 MG TABLET (FP) PO SCH ×3 (07:11→17:53)
[2021-08-08] MEDS: LACTULOSE 20 GM/30 ML UDC (FOR ORAL USE ONLY) PO SCH ×4 (10:09→22:20)
[2021-08-08] MEDS: PRENATAL VITAMINS W/ FOLIC ACID TABLET (FP) PO SCH (10:09)
[2021-08-08] MEDS: METHOCARBAMOL 500 MG TABLET PO PRN ×2 (10:12→22:21)
[2021-08-08] MEDS: NICOTINE 7 MG/24 HOURS TOPICAL PATCH TD SCH (11:44)
[2021-08-08 13:11] LABS: CALCIUM 9.5 mg/dL (8.5-10.1)
[2021-08-08 13:12] LABS: ALBUMIN 3.2 g/dl (3.4-5.0); BLOOD UREA NITROGEN 7.6 mg/dL (7-18)
[2021-08-08 13:14] LABS: CREATININE 0.6 mg/dL (0.55-1.3)
[2021-08-08 13:15] LABS: TOT PROT 7.1 g/dl (6.4-8.2)
[2021-08-08 13:16] LABS: BILIRUBIN,TOTAL 1.6 mg/dL (0.2-1)
[2021-08-08] MEDS: MIRTAZAPINE 15 MG TABLET (FP) PO SCH (22:20)
[2021-08-08] MEDS: MELATONIN 5 MG TABLETS PO SCH (22:20)
[2021-08-08] MEDS: THIAMINE HCL 100 MG TABLET (FP) PO SCH (22:20)
[2021-08-09] MEDS ORDERED: methaDONE HCL 10 MG TABLET ONE (04:30)
[2021-08-09] MEDS ORDERED: methaDONE HCL 40 MG DISPERSABLE TABLET ONE (04:30)
[2021-08-09] MEDS: MUPIROCIN 2% TOPICAL OINTMENT 22 GM TUBE TP SCH (05:39)
[2021-08-09] MEDS: hydrOXYzine PAMOATE 25 MG CAPSULE (FP) PO SCH ×2 (05:40→10:09)
[2021-08-09] MEDS: methaDONE 40 MG, methaDONE 20 MG PO SCH (05:40)
[2021-08-09] MEDS: FERROUS SO4 325 MG TABLET (FP) PO SCH (07:49)
[2021-08-09 08:58] VITALS: BP 130/82; PULSE 80; TEMP 97
[2021-08-09] MEDS: NICOTINE 7 MG/24 HOURS TOPICAL PATCH TD SCH (10:08)
[2021-08-09] MEDS: LACTULOSE 20 GM/30 ML UDC (FOR ORAL USE ONLY) PO SCH (10:09)
[2021-08-09] MEDS: PRENATAL VITAMINS W/ FOLIC ACID TABLET (FP) PO SCH (10:09)
== END 2021-08-09 11:32 | disposition home or self-care (01) | DRG 773 ==
LOC: YASAS 12:36 → Y3N 14:23
PROVIDERS: ADMIT Allergy & Immunology; ATTEND Allergy & Immunology
PROC: HZ2ZZZZ Detoxification Services for Substance Abuse Treatment (ICD-10-PCS; principal; 2021-08-03)
DX: F10.230 Alcohol dependence with withdrawal, uncomplicated (principal); F11.20 Opioid dependence, uncomplicated; F19.24 Other psychoactive substance dependence with psychoactive substance-induced mood disorder; G47.00 Insomnia, unspecified; I10 Essential (primary) hypertension; E78.5 Hyperlipidemia, unspecified; K74.60 Unspecified cirrhosis of liver; R79.89 Other specified abnormal findings of blood chemistry; Z86.11 Personal history of tuberculosis; Z87.891 Personal history of nicotine dependence; Z91.14 Patient's other noncompliance with medication regimen; Z88.8 Allergy status to other drugs, medicaments and biological substances
CPT/HCPCS: 36415; 80053; 82140; 85025; 85027; 86780; C9803; U0003; U0005

== ENCOUNTER 2021-08-09 11:36 | Inpatient (IN) | payer OTHER ==
[2021-08-09] MEDS ORDERED: guaiFENesin 200 MG/10 ML 10 ML UNIT-DOSE CUPS PO PRN (13:04)
[2021-08-09] MEDS ORDERED: MAGNESIUM HYDROX 2400MG/30ML ORAL SUSPENSION 30 ML CUP PO PRN (13:04)
[2021-08-09] MEDS ORDERED: NICOTINE 10 MG CARTRIDGE (INHALER) IH PRN (13:04)
[2021-08-09] MEDS ORDERED: MAG HYDROX/AL HYDROX/SIMETH 30 ML UNIT-DOSE CUP PO PRN (13:04)
[2021-08-09] MEDS ORDERED: MAGNESIUM CITRATE 300 ML BOTTLE PO PRN (13:04)
[2021-08-09] MEDS ORDERED: LOPERAMIDE HCL 2 MG CAPSULE PO PRN (13:04)
[2021-08-09] MEDS ORDERED: MENTHOL/PHENOL 1 EACH UD MM PRN (13:04)
[2021-08-09] MEDS ORDERED: IBUPROFEN 400 MG TABLET (FP) PO PRN (13:04)
[2021-08-09] MEDS ORDERED: P-EPHED 60MG/TRIPROLIDI 2.5MG TABLET PO PRN (13:04)
[2021-08-09] MEDS ORDERED: ACETAMINOPHEN 325 MG TABLET (FP) PO PRN (13:04)
[2021-08-09] MEDS: LACTULOSE 20 GM/30 ML UDC (FOR ORAL USE ONLY) PO SCH ×3 (13:58→21:26)
[2021-08-09] MEDS: METHOCARBAMOL 500 MG TABLET PO SCH ×3 (14:00→21:24)
[2021-08-09] MEDS: hydrOXYzine PAMOATE 25 MG CAPSULE (FP) PO SCH ×3 (14:00→21:24)
[2021-08-09] MEDS: FERROUS SO4 325 MG TABLET (FP) PO SCH (18:37)
[2021-08-09] MEDS: MELATONIN 5 MG TABLETS PO SCH (21:24)
[2021-08-09] MEDS: THIAMINE HCL 100 MG TABLET (FP) PO SCH (21:26)
[2021-08-09] MEDS: MIRTAZAPINE 15 MG TABLET (FP) PO SCH (21:26)
[2021-08-10] MEDS ORDERED: methaDONE HCL 40 MG DISPERSABLE TABLET ONE (04:00)
[2021-08-10] MEDS ORDERED: methaDONE HCL 10 MG TABLET ONE (04:00)
[2021-08-10] MEDS: methaDONE 40 MG, methaDONE 20 MG PO SCH (05:55)
[2021-08-10] MEDS: hydrOXYzine PAMOATE 25 MG CAPSULE (FP) PO SCH ×5 (05:55→21:27)
[2021-08-10] MEDS: FERROUS SO4 325 MG TABLET (FP) PO SCH ×3 (07:04→18:42)
[2021-08-10] MEDS ORDERED: methaDONE HCL 40 MG DISPERSABLE TABLET PO SCH (10:00)
[2021-08-10] MEDS: PRENATAL VITAMINS W/ FOLIC ACID TABLET (FP) PO SCH (10:25)
[2021-08-10] MEDS: METHOCARBAMOL 500 MG TABLET PO SCH ×4 (10:26→21:27)
[2021-08-10] MEDS: LACTULOSE 20 GM/30 ML UDC (FOR ORAL USE ONLY) PO SCH ×4 (10:26→21:27)
[2021-08-10] MEDS: NICOTINE 7 MG/24 HOURS TOPICAL PATCH TD SCH (10:27)
[2021-08-10] MEDS: MIRTAZAPINE 15 MG TABLET (FP) PO SCH (21:27)
[2021-08-10] MEDS: THIAMINE HCL 100 MG TABLET (FP) PO SCH (21:27)
[2021-08-10] MEDS: MELATONIN 5 MG TABLETS PO SCH (21:28)
[2021-08-11] MEDS ORDERED: methaDONE HCL 40 MG DISPERSABLE TABLET ONE (04:31)
[2021-08-11] MEDS ORDERED: methaDONE HCL 10 MG TABLET ONE (04:31)
[2021-08-11] MEDS: methaDONE 40 MG, methaDONE 20 MG PO SCH (06:12)
[2021-08-11] MEDS: hydrOXYzine PAMOATE 25 MG CAPSULE (FP) PO SCH ×5 (06:13→21:23)
[2021-08-11] MEDS: FERROUS SO4 325 MG TABLET (FP) PO SCH ×3 (07:08→17:45)
[2021-08-11] MEDS: METHOCARBAMOL 500 MG TABLET PO SCH ×4 (09:34→21:23)
[2021-08-11] MEDS: LACTULOSE 20 GM/30 ML UDC (FOR ORAL USE ONLY) PO SCH ×4 (09:34→21:24)
[2021-08-11] MEDS: PRENATAL VITAMINS W/ FOLIC ACID TABLET (FP) PO SCH (09:34)
[2021-08-11] MEDS: NICOTINE 7 MG/24 HOURS TOPICAL PATCH TD SCH (09:35)
[2021-08-11 14:07] LABS: SARS-CoV-2 NAA Not Detected (Not Detected)
[2021-08-11] MEDS: MIRTAZAPINE 15 MG TABLET (FP) PO SCH (21:23)
[2021-08-11] MEDS: THIAMINE HCL 100 MG TABLET (FP) PO SCH (21:24)
[2021-08-11] MEDS: MELATONIN 5 MG TABLETS PO SCH (21:24)
[2021-08-12] MEDS ORDERED: methaDONE HCL 40 MG DISPERSABLE TABLET ONE (03:04)
[2021-08-12] MEDS ORDERED: methaDONE HCL 10 MG TABLET ONE (03:04)
[2021-08-12] MEDS: methaDONE 40 MG, methaDONE 20 MG PO SCH (06:09)
[2021-08-12] MEDS: hydrOXYzine PAMOATE 25 MG CAPSULE (FP) PO SCH ×5 (06:09→21:23)
[2021-08-12] MEDS: FERROUS SO4 325 MG TABLET (FP) PO SCH ×3 (07:02→17:39)
[2021-08-12] MEDS: METHOCARBAMOL 500 MG TABLET PO SCH ×4 (09:33→21:23)
[2021-08-12] MEDS: LACTULOSE 20 GM/30 ML UDC (FOR ORAL USE ONLY) PO SCH ×4 (09:33→21:23)
[2021-08-12] MEDS: PRENATAL VITAMINS W/ FOLIC ACID TABLET (FP) PO SCH (09:33)
[2021-08-12] MEDS: NICOTINE 7 MG/24 HOURS TOPICAL PATCH TD SCH (09:33)
[2021-08-12] MEDS: MIRTAZAPINE 15 MG TABLET (FP) PO SCH (21:23)
[2021-08-12] MEDS: MELATONIN 5 MG TABLETS PO SCH (21:24)
[2021-08-12] MEDS: THIAMINE HCL 100 MG TABLET (FP) PO SCH (21:24)
[2021-08-13] MEDS ORDERED: methaDONE HCL 10 MG TABLET ONE (03:21)
[2021-08-13] MEDS ORDERED: methaDONE HCL 40 MG DISPERSABLE TABLET ONE (03:21)
[2021-08-13] MEDS: hydrOXYzine PAMOATE 25 MG CAPSULE (FP) PO SCH ×5 (06:15→21:22)
[2021-08-13] MEDS: methaDONE 40 MG, methaDONE 20 MG PO SCH (06:15)
[2021-08-13] MEDS: FERROUS SO4 325 MG TABLET (FP) PO SCH ×3 (07:04→17:51)
[2021-08-13] MEDS: PRENATAL VITAMINS W/ FOLIC ACID TABLET (FP) PO SCH (09:59)
[2021-08-13] MEDS: METHOCARBAMOL 500 MG TABLET PO SCH ×4 (09:59→21:22)
[2021-08-13] MEDS: LACTULOSE 20 GM/30 ML UDC (FOR ORAL USE ONLY) PO SCH ×4 (09:59→21:23)
[2021-08-13] MEDS: NICOTINE 7 MG/24 HOURS TOPICAL PATCH TD SCH (09:59)
[2021-08-13] MEDS: MIRTAZAPINE 15 MG TABLET (FP) PO SCH (21:22)
[2021-08-13] MEDS: THIAMINE HCL 100 MG TABLET (FP) PO SCH (21:22)
[2021-08-13] MEDS: MELATONIN 5 MG TABLETS PO SCH (21:23)
[2021-08-14] MEDS ORDERED: methaDONE HCL 40 MG DISPERSABLE TABLET ONE (03:09)
[2021-08-14] MEDS ORDERED: methaDONE HCL 10 MG TABLET ONE (03:09)
[2021-08-14] MEDS: hydrOXYzine PAMOATE 25 MG CAPSULE (FP) PO SCH ×5 (06:20→21:14)
[2021-08-14] MEDS: methaDONE 40 MG, methaDONE 20 MG PO SCH (06:20)
[2021-08-14] MEDS: FERROUS SO4 325 MG TABLET (FP) PO SCH ×3 (07:40→18:12)
[2021-08-14] MEDS: PRENATAL VITAMINS W/ FOLIC ACID TABLET (FP) PO SCH (10:12)
[2021-08-14] MEDS: LACTULOSE 20 GM/30 ML UDC (FOR ORAL USE ONLY) PO SCH ×4 (10:12→21:13)
[2021-08-14] MEDS: NICOTINE 7 MG/24 HOURS TOPICAL PATCH TD SCH (10:12)
[2021-08-14] MEDS: METHOCARBAMOL 500 MG TABLET PO SCH ×4 (10:13→21:14)
[2021-08-14 14:07] LABS: SARS-CoV-2 NAA Not Detected (Not Detected)
[2021-08-14] MEDS: MUPIROCIN 2% TOPICAL OINTMENT 22 GM TUBE TP SCH ×2 (14:35→21:14)
[2021-08-14] MEDS: MELATONIN 5 MG TABLETS PO SCH (21:13)
[2021-08-14] MEDS: MIRTAZAPINE 15 MG TABLET (FP) PO SCH (21:14)
[2021-08-14] MEDS: THIAMINE HCL 100 MG TABLET (FP) PO SCH (21:14)
[2021-08-15] MEDS ORDERED: methaDONE HCL 40 MG DISPERSABLE TABLET ONE (03:12)
[2021-08-15] MEDS ORDERED: methaDONE HCL 10 MG TABLET ONE (03:12)
[2021-08-15] MEDS: methaDONE 40 MG, methaDONE 20 MG PO SCH (06:10)
[2021-08-15] MEDS: hydrOXYzine PAMOATE 25 MG CAPSULE (FP) PO SCH ×2 (06:10→09:50)
[2021-08-15] MEDS: MUPIROCIN 2% TOPICAL OINTMENT 22 GM TUBE TP SCH ×3 (06:45→21:16)
[2021-08-15] MEDS: FERROUS SO4 325 MG TABLET (FP) PO SCH ×3 (07:02→18:03)
[2021-08-15] MEDS: METHOCARBAMOL 500 MG TABLET PO SCH ×4 (09:50→21:15)
[2021-08-15] MEDS: PRENATAL VITAMINS W/ FOLIC ACID TABLET (FP) PO SCH (09:50)
[2021-08-15] MEDS: LACTULOSE 20 GM/30 ML UDC (FOR ORAL USE ONLY) PO SCH ×4 (09:50→21:16)
[2021-08-15] MEDS: NICOTINE 7 MG/24 HOURS TOPICAL PATCH TD SCH (09:51)
[2021-08-15] MEDS: THIAMINE HCL 100 MG TABLET (FP) PO SCH (21:15)
[2021-08-15] MEDS: MIRTAZAPINE 15 MG TABLET (FP) PO SCH (21:15)
[2021-08-15] MEDS: MELATONIN 5 MG TABLETS PO SCH (21:15)
[2021-08-15] MEDS: hydrOXYzine PAMOATE 25 MG CAPSULE (FP) PO PRN (21:16)
[2021-08-16] MEDS ORDERED: methaDONE HCL 40 MG DISPERSABLE TABLET ONE (02:47)
[2021-08-16] MEDS ORDERED: methaDONE HCL 10 MG TABLET ONE (02:47)
[2021-08-16] MEDS: hydrOXYzine PAMOATE 25 MG CAPSULE (FP) PO PRN ×3 (06:18→21:14)
[2021-08-16] MEDS: methaDONE 40 MG, methaDONE 20 MG PO SCH (06:19)
[2021-08-16] MEDS: MUPIROCIN 2% TOPICAL OINTMENT 22 GM TUBE TP SCH ×3 (07:14→22:06)
[2021-08-16] MEDS: FERROUS SO4 325 MG TABLET (FP) PO SCH ×3 (07:14→17:35)
[2021-08-16] MEDS: PRENATAL VITAMINS W/ FOLIC ACID TABLET (FP) PO SCH (09:34)
[2021-08-16] MEDS: LACTULOSE 20 GM/30 ML UDC (FOR ORAL USE ONLY) PO SCH ×4 (09:34→21:13)
[2021-08-16] MEDS: NICOTINE 7 MG/24 HOURS TOPICAL PATCH TD SCH (09:35)
[2021-08-16] MEDS: THIAMINE HCL 100 MG TABLET (FP) PO SCH (21:12)
[2021-08-16] MEDS: MIRTAZAPINE 15 MG TABLET (FP) PO SCH (21:12)
[2021-08-16] MEDS: MELATONIN 5 MG TABLETS PO SCH (21:13)
[2021-08-16] MEDS: METHOCARBAMOL 500 MG TABLET PO PRN (21:14)
[2021-08-17] MEDS ORDERED: methaDONE HCL 40 MG DISPERSABLE TABLET ONE (04:02)
[2021-08-17] MEDS ORDERED: methaDONE HCL 10 MG TABLET ONE (04:02)
[2021-08-17] MEDS: MUPIROCIN 2% TOPICAL OINTMENT 22 GM TUBE TP SCH ×3 (05:54→21:46)
[2021-08-17] MEDS: methaDONE 40 MG, methaDONE 20 MG PO SCH (05:55)
[2021-08-17] MEDS: FERROUS SO4 325 MG TABLET (FP) PO SCH ×3 (07:08→17:26)
[2021-08-17] MEDS: PRENATAL VITAMINS W/ FOLIC ACID TABLET (FP) PO SCH (10:00)
[2021-08-17] MEDS ORDERED: MODERNA COVID-19 VACC,MRNA/PF 100 MCG/0.5 ML IM ONE (10:00)
[2021-08-17] MEDS: LACTULOSE 20 GM/30 ML UDC (FOR ORAL USE ONLY) PO SCH ×4 (10:00→21:45)
[2021-08-17] MEDS: hydrOXYzine PAMOATE 25 MG CAPSULE (FP) PO PRN ×3 (10:01→21:46)
[2021-08-17] MEDS: NICOTINE 7 MG/24 HOURS TOPICAL PATCH TD SCH (10:02)
[2021-08-17] MEDS: METHOCARBAMOL 500 MG TABLET PO PRN ×2 (14:03→21:45)
[2021-08-17] MEDS: MELATONIN 5 MG TABLETS PO SCH (21:44)
[2021-08-17] MEDS: THIAMINE HCL 100 MG TABLET (FP) PO SCH (21:44)
[2021-08-17] MEDS: MIRTAZAPINE 15 MG TABLET (FP) PO SCH (21:45)
[2021-08-18] MEDS ORDERED: methaDONE HCL 40 MG DISPERSABLE TABLET ONE (05:23)
[2021-08-18] MEDS ORDERED: methaDONE HCL 10 MG TABLET ONE (05:23)
[2021-08-18] MEDS: methaDONE 40 MG, methaDONE 20 MG PO SCH (06:15)
[2021-08-18] MEDS: MUPIROCIN 2% TOPICAL OINTMENT 22 GM TUBE TP SCH ×3 (06:15→21:30)
[2021-08-18] MEDS: FERROUS SO4 325 MG TABLET (FP) PO SCH ×3 (07:06→18:40)
[2021-08-18] MEDS: LACTULOSE 20 GM/30 ML UDC (FOR ORAL USE ONLY) PO SCH ×4 (10:04→21:28)
[2021-08-18] MEDS: PRENATAL VITAMINS W/ FOLIC ACID TABLET (FP) PO SCH (10:04)
[2021-08-18] MEDS: hydrOXYzine PAMOATE 25 MG CAPSULE (FP) PO PRN ×3 (10:05→21:29)
[2021-08-18] MEDS: METHOCARBAMOL 500 MG TABLET PO PRN ×2 (10:05→21:29)
[2021-08-18] MEDS: NICOTINE 7 MG/24 HOURS TOPICAL PATCH TD SCH (10:05)
[2021-08-18] MEDS: MELATONIN 5 MG TABLETS PO SCH (21:28)
[2021-08-18] MEDS: MIRTAZAPINE 15 MG TABLET (FP) PO SCH (21:28)
[2021-08-18] MEDS: THIAMINE HCL 100 MG TABLET (FP) PO SCH (21:28)
[2021-08-19] MEDS ORDERED: methaDONE HCL 40 MG DISPERSABLE TABLET ONE (03:43)
[2021-08-19] MEDS ORDERED: methaDONE HCL 10 MG TABLET ONE (03:43)
[2021-08-19] MEDS: MUPIROCIN 2% TOPICAL OINTMENT 22 GM TUBE TP SCH ×3 (06:26→21:26)
[2021-08-19] MEDS: methaDONE 40 MG, methaDONE 20 MG PO SCH (06:26)
[2021-08-19] MEDS: FERROUS SO4 325 MG TABLET (FP) PO SCH ×3 (07:05→18:03)
[2021-08-19] MEDS: PRENATAL VITAMINS W/ FOLIC ACID TABLET (FP) PO SCH (10:16)
[2021-08-19] MEDS: LACTULOSE 20 GM/30 ML UDC (FOR ORAL USE ONLY) PO SCH ×4 (10:16→21:26)
[2021-08-19] MEDS: hydrOXYzine PAMOATE 25 MG CAPSULE (FP) PO PRN ×3 (10:16→21:26)
[2021-08-19] MEDS: NICOTINE 7 MG/24 HOURS TOPICAL PATCH TD SCH (10:16)
[2021-08-19] MEDS: METHOCARBAMOL 500 MG TABLET PO PRN ×2 (14:30→21:26)
[2021-08-19] MEDS: MIRTAZAPINE 15 MG TABLET (FP) PO SCH (21:26)
[2021-08-19] MEDS: THIAMINE HCL 100 MG TABLET (FP) PO SCH (21:26)
[2021-08-19] MEDS: MELATONIN 5 MG TABLETS PO SCH (21:26)
[2021-08-20] MEDS ORDERED: methaDONE HCL 10 MG TABLET ONE (03:05)
[2021-08-20] MEDS ORDERED: methaDONE HCL 40 MG DISPERSABLE TABLET ONE (03:05)
[2021-08-20] MEDS: MUPIROCIN 2% TOPICAL OINTMENT 22 GM TUBE TP SCH ×3 (06:08→21:20)
[2021-08-20] MEDS: methaDONE 40 MG, methaDONE 20 MG PO SCH (06:08)
[2021-08-20] MEDS: FERROUS SO4 325 MG TABLET (FP) PO SCH ×3 (08:37→18:08)
[2021-08-20] MEDS: hydrOXYzine PAMOATE 25 MG CAPSULE (FP) PO PRN ×2 (08:38→21:19)
[2021-08-20] MEDS: PRENATAL VITAMINS W/ FOLIC ACID TABLET (FP) PO SCH (10:07)
[2021-08-20] MEDS: NICOTINE 7 MG/24 HOURS TOPICAL PATCH TD SCH (10:07)
[2021-08-20] MEDS: LACTULOSE 20 GM/30 ML UDC (FOR ORAL USE ONLY) PO SCH ×4 (10:07→21:17)
[2021-08-20] MEDS: MIRTAZAPINE 15 MG TABLET (FP) PO SCH (21:17)
[2021-08-20] MEDS: MELATONIN 5 MG TABLETS PO SCH (21:17)
[2021-08-20] MEDS: THIAMINE HCL 100 MG TABLET (FP) PO SCH (21:17)
[2021-08-20] MEDS: METHOCARBAMOL 500 MG TABLET PO PRN (21:19)
[2021-08-21] MEDS ORDERED: methaDONE HCL 40 MG DISPERSABLE TABLET ONE (03:00)
[2021-08-21] MEDS ORDERED: methaDONE HCL 10 MG TABLET ONE (03:00)
[2021-08-21] MEDS: MUPIROCIN 2% TOPICAL OINTMENT 22 GM TUBE TP SCH ×3 (06:28→21:22)
[2021-08-21] MEDS: hydrOXYzine PAMOATE 25 MG CAPSULE (FP) PO PRN ×3 (06:28→21:22)
[2021-08-21] MEDS: methaDONE 40 MG, methaDONE 20 MG PO SCH (06:28)
[2021-08-21] MEDS: FERROUS SO4 325 MG TABLET (FP) PO SCH ×3 (07:27→17:40)
[2021-08-21] MEDS: LACTULOSE 20 GM/30 ML UDC (FOR ORAL USE ONLY) PO SCH ×4 (09:52→21:22)
[2021-08-21] MEDS: METHOCARBAMOL 500 MG TABLET PO PRN ×2 (09:53→21:22)
[2021-08-21] MEDS: PRENATAL VITAMINS W/ FOLIC ACID TABLET (FP) PO SCH (09:54)
[2021-08-21] MEDS: NICOTINE 7 MG/24 HOURS TOPICAL PATCH TD SCH (09:54)
[2021-08-21] MEDS: MELATONIN 5 MG TABLETS PO SCH (21:21)
[2021-08-21] MEDS: MIRTAZAPINE 15 MG TABLET (FP) PO SCH (21:21)
[2021-08-21] MEDS: THIAMINE HCL 100 MG TABLET (FP) PO SCH (21:21)
[2021-08-22] MEDS ORDERED: methaDONE HCL 10 MG TABLET ONE (03:47)
[2021-08-22] MEDS ORDERED: methaDONE HCL 40 MG DISPERSABLE TABLET ONE (03:47)
[2021-08-22] MEDS: hydrOXYzine PAMOATE 25 MG CAPSULE (FP) PO PRN ×4 (06:09→21:16)
[2021-08-22] MEDS: methaDONE 40 MG, methaDONE 20 MG PO SCH (06:09)
[2021-08-22] MEDS: MUPIROCIN 2% TOPICAL OINTMENT 22 GM TUBE TP SCH ×3 (06:11→21:17)
[2021-08-22] MEDS: FERROUS SO4 325 MG TABLET (FP) PO SCH ×3 (07:01→18:50)
[2021-08-22] MEDS: PRENATAL VITAMINS W/ FOLIC ACID TABLET (FP) PO SCH (09:58)
[2021-08-22] MEDS: LACTULOSE 20 GM/30 ML UDC (FOR ORAL USE ONLY) PO SCH ×4 (09:58→21:17)
[2021-08-22] MEDS: NICOTINE 7 MG/24 HOURS TOPICAL PATCH TD SCH (09:59)
[2021-08-22] MEDS: METHOCARBAMOL 500 MG TABLET PO PRN ×2 (09:59→21:17)
[2021-08-22] MEDS: MIRTAZAPINE 15 MG TABLET (FP) PO SCH (21:16)
[2021-08-22] MEDS: THIAMINE HCL 100 MG TABLET (FP) PO SCH (21:16)
[2021-08-22] MEDS: MELATONIN 5 MG TABLETS PO SCH (21:16)
[2021-08-23] MEDS ORDERED: methaDONE HCL 10 MG TABLET ONE (03:55)
[2021-08-23] MEDS ORDERED: methaDONE HCL 40 MG DISPERSABLE TABLET ONE (03:55)
[2021-08-23] MEDS: MUPIROCIN 2% TOPICAL OINTMENT 22 GM TUBE TP SCH ×3 (06:08→21:04)
[2021-08-23] MEDS: methaDONE 40 MG, methaDONE 20 MG PO SCH (06:09)
[2021-08-23] MEDS: FERROUS SO4 325 MG TABLET (FP) PO SCH ×3 (07:10→18:36)
[2021-08-23] MEDS: LACTULOSE 20 GM/30 ML UDC (FOR ORAL USE ONLY) PO SCH ×4 (09:45→21:04)
[2021-08-23] MEDS: NICOTINE 7 MG/24 HOURS TOPICAL PATCH TD SCH (09:45)
[2021-08-23] MEDS: hydrOXYzine PAMOATE 25 MG CAPSULE (FP) PO PRN ×3 (09:46→21:04)
[2021-08-23] MEDS: PRENATAL VITAMINS W/ FOLIC ACID TABLET (FP) PO SCH (09:47)
[2021-08-23] MEDS: THIAMINE HCL 100 MG TABLET (FP) PO SCH (21:03)
[2021-08-23] MEDS: METHOCARBAMOL 500 MG TABLET PO PRN (21:03)
[2021-08-23] MEDS: MELATONIN 5 MG TABLETS PO SCH (21:03)
[2021-08-23] MEDS: MIRTAZAPINE 15 MG TABLET (FP) PO SCH (21:04)
[2021-08-24] MEDS ORDERED: methaDONE HCL 10 MG TABLET ONE (06:22)
[2021-08-24] MEDS ORDERED: methaDONE HCL 40 MG DISPERSABLE TABLET ONE (06:23)
[2021-08-24] MEDS: methaDONE 40 MG, methaDONE 20 MG PO SCH (06:23)
[2021-08-24] MEDS: MUPIROCIN 2% TOPICAL OINTMENT 22 GM TUBE TP SCH ×3 (06:25→21:55)
[2021-08-24] MEDS: FERROUS SO4 325 MG TABLET (FP) PO SCH ×3 (07:03→17:10)
[2021-08-24] MEDS: PRENATAL VITAMINS W/ FOLIC ACID TABLET (FP) PO SCH (10:08)
[2021-08-24] MEDS: LACTULOSE 20 GM/30 ML UDC (FOR ORAL USE ONLY) PO SCH ×4 (10:08→21:55)
[2021-08-24] MEDS: hydrOXYzine PAMOATE 25 MG CAPSULE (FP) PO PRN ×3 (10:09→21:56)
[2021-08-24] MEDS: NICOTINE 7 MG/24 HOURS TOPICAL PATCH TD SCH (10:46)
[2021-08-24] MEDS: METHOCARBAMOL 500 MG TABLET PO PRN ×2 (13:54→21:55)
[2021-08-24] MEDS: MELATONIN 5 MG TABLETS PO SCH (21:55)
[2021-08-24] MEDS: MIRTAZAPINE 15 MG TABLET (FP) PO SCH (21:55)
[2021-08-24] MEDS: THIAMINE HCL 100 MG TABLET (FP) PO SCH (21:55)
[2021-08-25] MEDS ORDERED: methaDONE HCL 40 MG DISPERSABLE TABLET ONE (03:54)
[2021-08-25] MEDS ORDERED: methaDONE HCL 10 MG TABLET ONE (03:54)
[2021-08-25] MEDS: MUPIROCIN 2% TOPICAL OINTMENT 22 GM TUBE TP SCH ×3 (06:13→21:28)
[2021-08-25] MEDS: methaDONE 40 MG, methaDONE 20 MG PO SCH (06:13)
[2021-08-25] MEDS: FERROUS SO4 325 MG TABLET (FP) PO SCH ×3 (07:03→17:41)
[2021-08-25] MEDS: hydrOXYzine PAMOATE 25 MG CAPSULE (FP) PO PRN ×3 (10:03→21:28)
[2021-08-25] MEDS: METHOCARBAMOL 500 MG TABLET PO PRN ×2 (10:03→21:27)
[2021-08-25] MEDS: LACTULOSE 20 GM/30 ML UDC (FOR ORAL USE ONLY) PO SCH ×4 (10:03→21:27)
[2021-08-25] MEDS: NICOTINE 7 MG/24 HOURS TOPICAL PATCH TD SCH (10:03)
[2021-08-25] MEDS: PRENATAL VITAMINS W/ FOLIC ACID TABLET (FP) PO SCH (10:03)
[2021-08-25] MEDS: MELATONIN 5 MG TABLETS PO SCH (21:26)
[2021-08-25] MEDS: THIAMINE HCL 100 MG TABLET (FP) PO SCH (21:26)
[2021-08-25] MEDS: MIRTAZAPINE 15 MG TABLET (FP) PO SCH (21:27)
[2021-08-26] MEDS ORDERED: methaDONE HCL 40 MG DISPERSABLE TABLET ONE (04:00)
[2021-08-26] MEDS ORDERED: methaDONE HCL 10 MG TABLET ONE (04:00)
[2021-08-26] MEDS: methaDONE 40 MG, methaDONE 20 MG PO SCH (06:17)
[2021-08-26] MEDS: hydrOXYzine PAMOATE 25 MG CAPSULE (FP) PO PRN ×4 (06:17→21:28)
[2021-08-26] MEDS: MUPIROCIN 2% TOPICAL OINTMENT 22 GM TUBE TP SCH ×3 (06:17→21:27)
[2021-08-26] MEDS: FERROUS SO4 325 MG TABLET (FP) PO SCH ×3 (07:15→17:07)
[2021-08-26] MEDS: LACTULOSE 20 GM/30 ML UDC (FOR ORAL USE ONLY) PO SCH ×4 (09:55→21:27)
[2021-08-26] MEDS: NICOTINE 7 MG/24 HOURS TOPICAL PATCH TD SCH (09:56)
[2021-08-26] MEDS: PRENATAL VITAMINS W/ FOLIC ACID TABLET (FP) PO SCH (09:56)
[2021-08-26] MEDS: MIRTAZAPINE 15 MG TABLET (FP) PO SCH (21:27)
[2021-08-26] MEDS: MELATONIN 5 MG TABLETS PO SCH (21:27)
[2021-08-26] MEDS: THIAMINE HCL 100 MG TABLET (FP) PO SCH (21:27)
[2021-08-26] MEDS: METHOCARBAMOL 500 MG TABLET PO PRN (21:28)
[2021-08-27] MEDS ORDERED: methaDONE HCL 10 MG TABLET ONE (03:08)
[2021-08-27] MEDS ORDERED: methaDONE HCL 40 MG DISPERSABLE TABLET ONE (03:08)
[2021-08-27] MEDS: MUPIROCIN 2% TOPICAL OINTMENT 22 GM TUBE TP SCH ×3 (06:01→21:26)
[2021-08-27] MEDS: hydrOXYzine PAMOATE 25 MG CAPSULE (FP) PO PRN ×4 (06:02→21:26)
[2021-08-27] MEDS: methaDONE 40 MG, methaDONE 20 MG PO SCH (06:02)
[2021-08-27] MEDS: FERROUS SO4 325 MG TABLET (FP) PO SCH ×3 (07:10→18:14)
[2021-08-27] MEDS: LACTULOSE 20 GM/30 ML UDC (FOR ORAL USE ONLY) PO SCH ×4 (09:35→21:26)
[2021-08-27] MEDS: PRENATAL VITAMINS W/ FOLIC ACID TABLET (FP) PO SCH (09:35)
[2021-08-27] MEDS: NICOTINE 7 MG/24 HOURS TOPICAL PATCH TD SCH (09:36)
[2021-08-27] MEDS: THIAMINE HCL 100 MG TABLET (FP) PO SCH (21:25)
[2021-08-27] MEDS: MIRTAZAPINE 15 MG TABLET (FP) PO SCH (21:25)
[2021-08-27] MEDS: MELATONIN 5 MG TABLETS PO SCH (21:25)
[2021-08-27] MEDS: METHOCARBAMOL 500 MG TABLET PO PRN (21:26)
[2021-08-28] MEDS ORDERED: methaDONE HCL 10 MG TABLET ONE (03:04)
[2021-08-28] MEDS ORDERED: methaDONE HCL 40 MG DISPERSABLE TABLET ONE (03:04)
[2021-08-28] MEDS: hydrOXYzine PAMOATE 25 MG CAPSULE (FP) PO PRN ×4 (05:52→21:04)
[2021-08-28] MEDS: methaDONE 40 MG, methaDONE 20 MG PO SCH (05:52)
[2021-08-28] MEDS: MUPIROCIN 2% TOPICAL OINTMENT 22 GM TUBE TP SCH ×3 (05:52→21:04)
[2021-08-28] MEDS: FERROUS SO4 325 MG TABLET (FP) PO SCH ×3 (07:05→18:25)
[2021-08-28] MEDS: METHOCARBAMOL 500 MG TABLET PO PRN ×2 (09:33→21:03)
[2021-08-28] MEDS: NICOTINE 7 MG/24 HOURS TOPICAL PATCH TD SCH (09:33)
[2021-08-28] MEDS: PRENATAL VITAMINS W/ FOLIC ACID TABLET (FP) PO SCH (09:33)
[2021-08-28] MEDS: LACTULOSE 20 GM/30 ML UDC (FOR ORAL USE ONLY) PO SCH ×4 (09:33→21:03)
[2021-08-28] MEDS: THIAMINE HCL 100 MG TABLET (FP) PO SCH (21:03)
[2021-08-28] MEDS: MELATONIN 5 MG TABLETS PO SCH (21:03)
[2021-08-28] MEDS: MIRTAZAPINE 15 MG TABLET (FP) PO SCH (21:03)
[2021-08-29] MEDS ORDERED: methaDONE HCL 10 MG TABLET ONE (03:15)
[2021-08-29] MEDS ORDERED: methaDONE HCL 40 MG DISPERSABLE TABLET ONE (03:15)
[2021-08-29] MEDS: hydrOXYzine PAMOATE 25 MG CAPSULE (FP) PO PRN ×4 (06:10→21:28)
[2021-08-29] MEDS: MUPIROCIN 2% TOPICAL OINTMENT 22 GM TUBE TP SCH ×3 (06:10→21:29)
[2021-08-29] MEDS: methaDONE 40 MG, methaDONE 20 MG PO SCH (06:11)
[2021-08-29 06:51] VITALS: TEMP 98.4
[2021-08-29] MEDS: FERROUS SO4 325 MG TABLET (FP) PO SCH ×3 (07:17→17:08)
[2021-08-29] MEDS: LACTULOSE 20 GM/30 ML UDC (FOR ORAL USE ONLY) PO SCH ×4 (10:30→21:28)
[2021-08-29] MEDS: PRENATAL VITAMINS W/ FOLIC ACID TABLET (FP) PO SCH (10:30)
[2021-08-29] MEDS: NICOTINE 7 MG/24 HOURS TOPICAL PATCH TD SCH (10:31)
[2021-08-29] MEDS: MIRTAZAPINE 15 MG TABLET (FP) PO SCH (21:28)
[2021-08-29] MEDS: METHOCARBAMOL 500 MG TABLET PO PRN (21:28)
[2021-08-29] MEDS: MELATONIN 5 MG TABLETS PO SCH (21:28)
[2021-08-29] MEDS: THIAMINE HCL 100 MG TABLET (FP) PO SCH (21:28)
[2021-08-30] MEDS ORDERED: methaDONE HCL 10 MG TABLET ONE (03:02)
[2021-08-30] MEDS ORDERED: methaDONE HCL 40 MG DISPERSABLE TABLET ONE (03:02)
[2021-08-30] MEDS: methaDONE 40 MG, methaDONE 20 MG PO SCH (06:19)
[2021-08-30] MEDS: hydrOXYzine PAMOATE 25 MG CAPSULE (FP) PO PRN ×2 (06:20→10:04)
[2021-08-30] MEDS: MUPIROCIN 2% TOPICAL OINTMENT 22 GM TUBE TP SCH (06:43)
[2021-08-30 06:52] VITALS: BP 106/60; PULSE 73
[2021-08-30] MEDS: FERROUS SO4 325 MG TABLET (FP) PO SCH (07:19)
[2021-08-30] MEDS ORDERED: THIAMINE HCL 100 MG TABLET (FP) PO SCH (10:00)
[2021-08-30] MEDS: PRENATAL VITAMINS W/ FOLIC ACID TABLET (FP) PO SCH (10:03)
[2021-08-30] MEDS: LACTULOSE 20 GM/30 ML UDC (FOR ORAL USE ONLY) PO SCH (10:03)
[2021-08-30] MEDS: NICOTINE 7 MG/24 HOURS TOPICAL PATCH TD SCH (10:03)
== END 2021-08-30 10:12 | disposition home or self-care (01) | DRG 772 ==
LOC: YASAS 11:36 → Y3W 11:37
PROVIDERS: ADMIT Allergy & Immunology; ATTEND Allergy & Immunology
PROC: HZ42ZZZ Group Counseling for Substance Abuse Treatment, Cognitive-Behavioral (ICD-10-PCS; principal; 2021-08-09)
DX: F10.20 Alcohol dependence, uncomplicated (principal); F11.20 Opioid dependence, uncomplicated; F41.9 Anxiety disorder, unspecified; I10 Essential (primary) hypertension; R79.89 Other specified abnormal findings of blood chemistry; Z87.891 Personal history of nicotine dependence; Z87.09 Personal history of other diseases of the respiratory system; Z87.19 Personal history of other diseases of the digestive system; Z88.8 Allergy status to other drugs, medicaments and biological substances
CPT/HCPCS: 0012A; 82140; 82962; 91301; C9803; U0003; U0005

== ENCOUNTER 2022-02-14 12:20 | Inpatient (IN) | payer OTHER ==
[2022-02-14 13:15] VITALS: BMI 31.7
[2022-02-14] MEDS ORDERED: MAGNESIUM CITRATE 300 ML BOTTLE PO PRN (13:38)
[2022-02-14] MEDS ORDERED: IBUPROFEN 400 MG TABLET (FP) PO PRN (13:38)
[2022-02-14] MEDS ORDERED: LOPERAMIDE HCL 2 MG CAPSULE PO PRN (13:38)
[2022-02-14] MEDS ORDERED: MAGNESIUM HYDROX 2400MG/30ML ORAL SUSPENSION 30 ML CUP PO PRN (13:38)
[2022-02-14] MEDS ORDERED: IBUPROFEN 600 MG TABLET (FP) PO PRN (13:38)
[2022-02-14] MEDS ORDERED: MAG HYDROX/AL HYDROX/SIMETH 30 ML UNIT-DOSE CUP PO PRN (13:38)
[2022-02-14] MEDS ORDERED: ONDANSETRON *ODT* 4 MG TABLET SL PRN (13:38)
[2022-02-14] MEDS ORDERED: BENZOCAINE/MENTHOL (CHLORASEPTIC ) LOZENGE MM PRN (13:38)
[2022-02-14] MEDS ORDERED: BISMUTH SUBSALICYLATE 524 MG/30 ML PO PRN (13:38)
[2022-02-14] MEDS ORDERED: DICYCLOMINE HCL 10 MG CAPSULE PO PRN (13:38)
[2022-02-14] MEDS ORDERED: NICOTINE 10 MG CARTRIDGE (INHALER) IH PRN (13:38)
[2022-02-14] MEDS ORDERED: ACETAMINOPHEN 325 MG TABLET (FP) PO PRN ×2 (13:38)
[2022-02-14] MEDS ORDERED: LORazepam 1 MG TABLET PO PRN (13:38)
[2022-02-14] MEDS: METHOCARBAMOL 500 MG TABLET PO PRN (15:20)
[2022-02-14] MEDS: hydrOXYzine PAMOATE 25 MG CAPSULE (FP) PO SCH ×3 (15:20→22:16)
[2022-02-14] MEDS: PRENATAL VITAMINS W/ FOLIC ACID TABLET (FP) PO SCH (15:20)
[2022-02-14] MEDS: INSULIN SLIDING SCALE (NOVOLOG) 1 VIAL SQ SCH (17:37)
[2022-02-14] MEDS: LORazepam 2 MG TABLET PO SCH ×2 (18:06→22:16)
[2022-02-14] MEDS: MELATONIN 5 MG TABLETS PO SCH (22:16)
[2022-02-14] MEDS: THIAMINE HCL 100 MG TABLET (FP) PO SCH (22:16)
[2022-02-15] MEDS: LORazepam 2 MG TABLET PO SCH ×3 (05:28→18:45)
[2022-02-15] MEDS: hydrOXYzine PAMOATE 25 MG CAPSULE (FP) PO SCH ×5 (05:28→22:09)
[2022-02-15] MEDS: INSULIN SLIDING SCALE (NOVOLOG) 1 VIAL SQ SCH ×3 (06:39→18:44)
[2022-02-15] MEDS ORDERED: methaDONE HCL 10 MG TABLET PO ONE (08:01)
[2022-02-15] MEDS ORDERED: methaDONE 40 MG, methaDONE 20 MG PO ONE (08:30)
[2022-02-15] MEDS: PRENATAL VITAMINS W/ FOLIC ACID TABLET (FP) PO SCH (10:05)
[2022-02-15 11:10] LABS: HEMATOCRIT 41.7 % (35.4-49); HEMOGLOBIN 14.4 GM/dL (11.7-16.9); MCH 29.3 pg (25.7-33.7); MCHC 34.6 g/dl (32.0-35.9); MEAN CELL VOLUME 84.9 fl (80-96); MEAN PLT VOLUME 8.1 fl (7.5-11.1); PLATELET COUNT 57 10^3/uL (134-434); RBC 4.92 M/mm3 (4.00-5.60); RDW 15.1 % (11.9-15.9); WHITE BLOOD COUNT 6.3 K/mm3 (4.0-10.0)
[2022-02-15 11:17] LABS: CALCIUM 8.7 mg/dL (8.5-10.1)
[2022-02-15 11:18] LABS: ALBUMIN 3.8 g/dl (3.4-5.0); BLOOD UREA NITROGEN 10.6 mg/dL (7-18)
[2022-02-15 11:20] LABS: CREATININE 0.6 mg/dL (0.55-1.3)
[2022-02-15 11:23] LABS: BILIRUBIN,TOTAL 2.7 mg/dL (0.2-1); TOT PROT 7.9 g/dl (6.4-8.2)
[2022-02-15] MEDS ORDERED: chlordiazePOXIDE HCL 25 MG CAPSULE PO PRN (19:38)
[2022-02-15] MEDS: THIAMINE HCL 100 MG TABLET (FP) PO SCH (22:09)
[2022-02-15] MEDS: chlordiazePOXIDE HCL 25 MG CAPSULE PO SCH (22:09)
[2022-02-15] MEDS: MELATONIN 5 MG TABLETS PO SCH (22:09)
[2022-02-16] MEDS ORDERED: LORazepam 1 MG TABLET PO SCH (05:00)
[2022-02-16] MEDS: methaDONE 40 MG, methaDONE 20 MG PO SCH (05:37)
[2022-02-16] MEDS: hydrOXYzine PAMOATE 25 MG CAPSULE (FP) PO SCH ×5 (05:38→22:25)
[2022-02-16] MEDS: chlordiazePOXIDE HCL 25 MG CAPSULE PO SCH ×4 (05:38→22:25)
[2022-02-16] MEDS ORDERED: methaDONE HCL 10 MG TABLET PO SCH (06:00)
[2022-02-16] MEDS: INSULIN SLIDING SCALE (NOVOLOG) 1 VIAL SQ SCH ×3 (07:04→17:39)
[2022-02-16] MEDS: PRENATAL VITAMINS W/ FOLIC ACID TABLET (FP) PO SCH (10:43)
[2022-02-16] MEDS: METHOCARBAMOL 500 MG TABLET PO PRN ×2 (10:43→17:41)
[2022-02-16] MEDS ORDERED: INSULIN (NOVOLOG) ASPART 100 UNITS/ML 10ML VIAL ONE (17:08)
[2022-02-16] MEDS: MELATONIN 5 MG TABLETS PO SCH (22:25)
[2022-02-16] MEDS: THIAMINE HCL 100 MG TABLET (FP) PO SCH (22:25)
[2022-02-17] MEDS ORDERED: LORazepam 0.5 MG TABLET PO PRN
[2022-02-17] MEDS ORDERED: LORazepam 0.5 MG TABLET PO SCH (05:00)
[2022-02-17] MEDS: methaDONE 40 MG, methaDONE 20 MG PO SCH (05:37)
[2022-02-17] MEDS: hydrOXYzine PAMOATE 25 MG CAPSULE (FP) PO SCH ×5 (05:38→22:39)
[2022-02-17] MEDS: chlordiazePOXIDE HCL 10 MG CAPSULE PO SCH ×4 (05:38→22:40)
[2022-02-17] MEDS: INSULIN SLIDING SCALE (NOVOLOG) 1 VIAL SQ SCH ×3 (07:08→16:43)
[2022-02-17] MEDS: METHOCARBAMOL 500 MG TABLET PO PRN ×2 (10:16→17:42)
[2022-02-17] MEDS: PRENATAL VITAMINS W/ FOLIC ACID TABLET (FP) PO SCH (10:17)
[2022-02-17] MEDS: LACTULOSE 20 GM/30 ML UDC (FOR ORAL USE ONLY) PO SCH ×4 (10:18→22:38)
[2022-02-17] MEDS ORDERED: INSULIN (NOVOLOG) ASPART 100 UNITS/ML 10ML VIAL ONE (16:56)
[2022-02-17] MEDS: THIAMINE HCL 100 MG TABLET (FP) PO SCH (22:39)
[2022-02-17] MEDS: MELATONIN 5 MG TABLETS PO SCH (22:39)
[2022-02-18] MEDS ORDERED: chlordiazePOXIDE HCL 10 MG CAPSULE PO PRN
[2022-02-18] MEDS ORDERED: LORazepam 0.5 MG TABLET PO ONE (05:00)
[2022-02-18] MEDS: methaDONE 40 MG, methaDONE 20 MG PO SCH (05:54)
[2022-02-18] MEDS: hydrOXYzine PAMOATE 25 MG CAPSULE (FP) PO SCH ×5 (05:55→22:11)
[2022-02-18] MEDS: chlordiazePOXIDE HCL 10 MG CAPSULE PO SCH ×2 (05:55→17:53)
[2022-02-18] MEDS: INSULIN SLIDING SCALE (NOVOLOG) 1 VIAL SQ SCH ×3 (06:08→19:05)
[2022-02-18] MEDS: LACTULOSE 20 GM/30 ML UDC (FOR ORAL USE ONLY) PO SCH ×4 (10:07→22:11)
[2022-02-18] MEDS: PRENATAL VITAMINS W/ FOLIC ACID TABLET (FP) PO SCH (10:07)
[2022-02-18] MEDS: BACITRACIN 0.9 GM PACKET TP SCH (11:42)
[2022-02-18] MEDS: THIAMINE HCL 100 MG TABLET (FP) PO SCH (22:11)
[2022-02-18] MEDS: MELATONIN 5 MG TABLETS PO SCH (22:12)
[2022-02-18] MEDS: METHOCARBAMOL 500 MG TABLET PO PRN (22:13)
[2022-02-19] MEDS ORDERED: chlordiazePOXIDE HCL 10 MG CAPSULE PO ONE (05:00)
[2022-02-19] MEDS: hydrOXYzine PAMOATE 25 MG CAPSULE (FP) PO SCH ×3 (05:35→14:08)
[2022-02-19] MEDS: methaDONE 40 MG, methaDONE 20 MG PO SCH (05:35)
[2022-02-19] MEDS: INSULIN SLIDING SCALE (NOVOLOG) 1 VIAL SQ SCH ×2 (06:14→11:43)
[2022-02-19 06:24] VITALS: RESP 18
[2022-02-19] MEDS: PRENATAL VITAMINS W/ FOLIC ACID TABLET (FP) PO SCH (10:17)
[2022-02-19] MEDS: BACITRACIN 0.9 GM PACKET TP SCH (10:17)
[2022-02-19] MEDS: LACTULOSE 20 GM/30 ML UDC (FOR ORAL USE ONLY) PO SCH ×2 (10:18→14:08)
[2022-02-19] MEDS: METHOCARBAMOL 500 MG TABLET PO PRN (10:19)
[2022-02-19 12:36] VITALS: BP 128/89; PULSE 97; TEMP 96.9
== END 2022-02-19 15:00 | disposition other institution (70) | DRG 773 ==
LOC: YASAS 12:20 → Y6N 14:46
PROVIDERS: ADMIT Allergy & Immunology; ATTEND Surgery
PROC: HZ2ZZZZ Detoxification Services for Substance Abuse Treatment (ICD-10-PCS; principal; 2022-02-14)
DX: F10.230 Alcohol dependence with withdrawal, uncomplicated (principal); F11.20 Opioid dependence, uncomplicated; I10 Essential (primary) hypertension; E78.5 Hyperlipidemia, unspecified; E72.20 Disorder of urea cycle metabolism, unspecified; K70.30 Alcoholic cirrhosis of liver without ascites; D69.6 Thrombocytopenia, unspecified; R74.01 Elevation of levels of liver transaminase levels; K21.9 Gastro-esophageal reflux disease without esophagitis; Z88.8 Allergy status to other drugs, medicaments and biological substances; Z86.11 Personal history of tuberculosis; Z87.891 Personal history of nicotine dependence; Z56.0 Unemployment, unspecified
CPT/HCPCS: 36415; 71046-TC-FY; 80053; 82140; 82247; 82962; 85027; 86780; C9803-CS; U0003; U0005

== ENCOUNTER 2022-02-19 15:07 | Inpatient (IN) | payer OTHER ==
[2022-02-19] MEDS ORDERED: IBUPROFEN 400 MG TABLET (FP) PO PRN (15:34)
[2022-02-19] MEDS ORDERED: MAG HYDROX/AL HYDROX/SIMETH 30 ML UNIT-DOSE CUP PO PRN (15:34)
[2022-02-19] MEDS ORDERED: ACETAMINOPHEN 325 MG TABLET (FP) PO PRN (15:34)
[2022-02-19] MEDS ORDERED: guaiFENesin 200 MG/10 ML 10 ML UNIT-DOSE CUPS PO PRN (15:34)
[2022-02-19] MEDS ORDERED: MAGNESIUM CITRATE 300 ML BOTTLE PO PRN (15:34)
[2022-02-19] MEDS ORDERED: LOPERAMIDE HCL 2 MG CAPSULE PO PRN (15:34)
[2022-02-19] MEDS ORDERED: BENZOCAINE/MENTHOL (CHLORASEPTIC ) LOZENGE MM PRN (15:34)
[2022-02-19] MEDS ORDERED: MAGNESIUM HYDROX 2400MG/30ML ORAL SUSPENSION 30 ML CUP PO PRN (15:34)
[2022-02-19] MEDS ORDERED: hydrOXYzine PAMOATE 25 MG CAPSULE (FP) PO PRN (15:34)
[2022-02-19] MEDS ORDERED: P-EPHED 60MG/TRIPROLIDI 2.5MG TABLET PO PRN (15:34)
[2022-02-19] MEDS: LACTULOSE 20 GM/30 ML UDC (FOR ORAL USE ONLY) PO SCH ×2 (17:40→21:10)
[2022-02-19] MEDS: MELATONIN 5 MG TABLETS PO PRN (21:10)
[2022-02-19] MEDS: THIAMINE HCL 100 MG TABLET (FP) PO SCH (21:10)
[2022-02-19] MEDS: traZODone HCL 50 MG TABLET (FP) PO SCH (21:10)
[2022-02-20] MEDS ORDERED: methaDONE HCL 40 MG DISPERSABLE TABLET PO SCH (06:00)
[2022-02-20] MEDS: methaDONE 40 MG, methaDONE 20 MG PO SCH (06:10)
[2022-02-20] MEDS: LACTULOSE 20 GM/30 ML UDC (FOR ORAL USE ONLY) PO SCH ×4 (10:36→21:28)
[2022-02-20] MEDS: PRENATAL VITAMINS W/ FOLIC ACID TABLET (FP) PO SCH (10:36)
[2022-02-20] MEDS: hydrOXYzine PAMOATE 25 MG CAPSULE (FP) PO PRN ×3 (10:37→21:29)
[2022-02-20] MEDS: METHOCARBAMOL 500 MG TABLET PO PRN ×2 (10:37→21:29)
[2022-02-20] MEDS: traZODone HCL 50 MG TABLET (FP) PO SCH (21:28)
[2022-02-20] MEDS: THIAMINE HCL 100 MG TABLET (FP) PO SCH (21:28)
[2022-02-20] MEDS: MELATONIN 5 MG TABLETS PO PRN (21:28)
[2022-02-21] MEDS: methaDONE 40 MG, methaDONE 20 MG PO SCH (06:00)
[2022-02-21] MEDS: hydrOXYzine PAMOATE 25 MG CAPSULE (FP) PO PRN ×4 (06:01→23:14)
[2022-02-21 09:50] LABS: CALCIUM 8.9 mg/dL (8.5-10.1)
[2022-02-21 09:51] LABS: BLOOD UREA NITROGEN 9.7 mg/dL (7-18)
[2022-02-21 09:54] LABS: CREATININE 0.6 mg/dL (0.55-1.3)
[2022-02-21 09:56] LABS: BILIRUBIN,TOTAL 1.1 mg/dL (0.2-1); TOT PROT 6.2 g/dl (6.4-8.2)
[2022-02-21] MEDS: PRENATAL VITAMINS W/ FOLIC ACID TABLET (FP) PO SCH (10:25)
[2022-02-21] MEDS: LACTULOSE 20 GM/30 ML UDC (FOR ORAL USE ONLY) PO SCH ×4 (10:26→21:30)
[2022-02-21] MEDS: HYDROCORTISONE 1% TOPICAL CREAM 30 GM TUBE TP PRN ×2 (10:37→21:31)
[2022-02-21] MEDS: THIAMINE HCL 100 MG TABLET (FP) PO SCH (21:30)
[2022-02-21] MEDS: MELATONIN 5 MG TABLETS PO PRN (21:30)
[2022-02-21] MEDS: traZODone HCL 50 MG TABLET (FP) PO SCH (21:30)
[2022-02-22] MEDS: methaDONE 40 MG, methaDONE 20 MG PO SCH (06:08)
[2022-02-22] MEDS: hydrOXYzine PAMOATE 25 MG CAPSULE (FP) PO PRN ×3 (06:09→21:07)
[2022-02-22] MEDS: METHOCARBAMOL 500 MG TABLET PO PRN (10:28)
[2022-02-22] MEDS: PRENATAL VITAMINS W/ FOLIC ACID TABLET (FP) PO SCH (10:28)
[2022-02-22] MEDS: LACTULOSE 20 GM/30 ML UDC (FOR ORAL USE ONLY) PO SCH ×4 (10:29→21:07)
[2022-02-22] MEDS: MELATONIN 5 MG TABLETS PO PRN (21:06)
[2022-02-22] MEDS: THIAMINE HCL 100 MG TABLET (FP) PO SCH (21:06)
[2022-02-22] MEDS: traZODone HCL 50 MG TABLET (FP) PO SCH (21:07)
[2022-02-23] MEDS: methaDONE 40 MG, methaDONE 20 MG PO SCH (06:04)
[2022-02-23] MEDS: hydrOXYzine PAMOATE 25 MG CAPSULE (FP) PO PRN ×3 (06:06→21:46)
[2022-02-23] MEDS: LACTULOSE 20 GM/30 ML UDC (FOR ORAL USE ONLY) PO SCH ×4 (10:08→21:46)
[2022-02-23] MEDS: METHOCARBAMOL 500 MG TABLET PO PRN (10:08)
[2022-02-23] MEDS: PRENATAL VITAMINS W/ FOLIC ACID TABLET (FP) PO SCH (10:08)
[2022-02-23] MEDS: THIAMINE HCL 100 MG TABLET (FP) PO SCH (21:46)
[2022-02-23] MEDS: traZODone HCL 50 MG TABLET (FP) PO SCH (21:46)
[2022-02-23] MEDS: MELATONIN 5 MG TABLETS PO PRN (21:47)
[2022-02-24] MEDS: methaDONE 40 MG, methaDONE 20 MG PO SCH (06:03)
[2022-02-24] MEDS: METHOCARBAMOL 500 MG TABLET PO PRN ×2 (06:04→10:14)
[2022-02-24] MEDS: hydrOXYzine PAMOATE 25 MG CAPSULE (FP) PO PRN ×2 (06:04→17:33)
[2022-02-24 06:45] VITALS: PULSE 67
[2022-02-24] MEDS: LACTULOSE 20 GM/30 ML UDC (FOR ORAL USE ONLY) PO SCH ×4 (10:14→21:36)
[2022-02-24] MEDS: PRENATAL VITAMINS W/ FOLIC ACID TABLET (FP) PO SCH (10:14)
[2022-02-24] MEDS: MELATONIN 5 MG TABLETS PO PRN (21:36)
[2022-02-24] MEDS: THIAMINE HCL 100 MG TABLET (FP) PO SCH (21:36)
[2022-02-24] MEDS: traZODone HCL 50 MG TABLET (FP) PO SCH (21:36)
[2022-02-25] MEDS: methaDONE 40 MG, methaDONE 20 MG PO SCH (06:40)
[2022-02-25] MEDS: METHOCARBAMOL 500 MG TABLET PO PRN (06:45)
[2022-02-25] MEDS: hydrOXYzine PAMOATE 25 MG CAPSULE (FP) PO PRN ×2 (06:46→13:53)
[2022-02-25 07:05] VITALS: BP 129/76; RESP 17; TEMP 97.7
[2022-02-25] MEDS: PRENATAL VITAMINS W/ FOLIC ACID TABLET (FP) PO SCH (10:37)
[2022-02-25] MEDS: LACTULOSE 20 GM/30 ML UDC (FOR ORAL USE ONLY) PO SCH ×2 (10:37→13:52)
== END 2022-02-25 16:53 | disposition home or self-care (01) | DRG 772 ==
LOC: YASAS 15:07 → Y3W 15:08
PROVIDERS: ADMIT Allergy & Immunology; ATTEND Psychiatry & Neurology Pain Medicine
PROC: HZ42ZZZ Group Counseling for Substance Abuse Treatment, Cognitive-Behavioral (ICD-10-PCS; principal; 2022-02-19)
DX: F10.20 Alcohol dependence, uncomplicated (principal); F11.20 Opioid dependence, uncomplicated; F41.9 Anxiety disorder, unspecified; G47.00 Insomnia, unspecified; K70.30 Alcoholic cirrhosis of liver without ascites; E78.5 Hyperlipidemia, unspecified; I10 Essential (primary) hypertension; R79.89 Other specified abnormal findings of blood chemistry; R74.01 Elevation of levels of liver transaminase levels; Z20.822 Contact with and (suspected) exposure to COVID-19; Z88.8 Allergy status to other drugs, medicaments and biological substances; Z87.891 Personal history of nicotine dependence
CPT/HCPCS: 36415; 80053; 82140; 82962; 83036; C9803-CS; U0003; U0005

== ENCOUNTER 2022-07-28 12:24 | Inpatient (IN) | payer OTHER ==
[2022-07-28 14:12] VITALS: BMI 32.1
[2022-07-28] MEDS ORDERED: LOPERAMIDE HCL 2 MG CAPSULE PO PRN (15:33)
[2022-07-28] MEDS ORDERED: BISMUTH SUBSALICYLATE 524 MG/30 ML PO PRN (15:33)
[2022-07-28] MEDS ORDERED: DICYCLOMINE HCL 10 MG CAPSULE PO PRN (15:33)
[2022-07-28] MEDS ORDERED: ACETAMINOPHEN 325 MG TABLET (FP) PO PRN ×2 (15:33)
[2022-07-28] MEDS ORDERED: chlordiazePOXIDE HCL 25 MG CAPSULE PO PRN (15:33)
[2022-07-28] MEDS ORDERED: ONDANSETRON *ODT* 4 MG TABLET SL PRN (15:33)
[2022-07-28] MEDS ORDERED: MAGNESIUM HYDROX 2400MG/30ML ORAL SUSPENSION 30 ML CUP PO PRN (15:33)
[2022-07-28] MEDS ORDERED: POLYETHYLENE GLYCOL (HEALTHYLAX) 3350 17 GM PACKET PO PRN (15:33)
[2022-07-28] MEDS ORDERED: MAG HYDROX/AL HYDROX/SIMETH 30 ML UNIT-DOSE CUP PO PRN (15:33)
[2022-07-28] MEDS ORDERED: IBUPROFEN 400 MG TABLET (FP) PO PRN (15:33)
[2022-07-28] MEDS ORDERED: BENZOCAINE/MENTHOL (CHLORASEPTIC ) LOZENGE MM PRN (15:33)
[2022-07-28] MEDS ORDERED: NALOXONE HCL (KLOXXADO) 8 MG SPRAY NS PRN (15:33)
[2022-07-28] MEDS ORDERED: chlordiazePOXIDE HCL 25 MG CAPSULE ONE (18:31)
[2022-07-28] MEDS: chlordiazePOXIDE HCL 25 MG CAPSULE PO SCH ×2 (18:33→22:53)
[2022-07-28] MEDS: hydrOXYzine PAMOATE 25 MG CAPSULE (FP) PO PRN (18:33)
[2022-07-28] MEDS: LACTULOSE 20 GM/30 ML UDC (FOR ORAL USE ONLY) PO SCH ×2 (18:34→22:52)
[2022-07-28] MEDS: IBUPROFEN 600 MG TABLET (FP) PO PRN (22:52)
[2022-07-28] MEDS: THIAMINE HCL 100 MG TABLET (FP) PO SCH (22:52)
[2022-07-28] MEDS: MELATONIN 5 MG TABLETS PO SCH (22:53)
[2022-07-29] MEDS: chlordiazePOXIDE HCL 25 MG CAPSULE PO SCH ×4 (06:17→22:36)
[2022-07-29] MEDS: PRENATAL VITAMINS W/ FOLIC ACID TABLET (FP) PO SCH (10:52)
[2022-07-29] MEDS: METHOCARBAMOL 500 MG TABLET PO PRN (10:52)
[2022-07-29] MEDS: LACTULOSE 20 GM/30 ML UDC (FOR ORAL USE ONLY) PO SCH ×4 (10:52→22:36)
[2022-07-29] MEDS: hydrOXYzine PAMOATE 25 MG CAPSULE (FP) PO PRN (10:54)
[2022-07-29 12:15] LABS: HEMATOCRIT 35.1 % (35.4-49); MCH 29.3 pg (25.7-33.7); MCHC 34.1 g/dl (32.0-35.9); MEAN PLT VOLUME 7.9 fl (7.5-11.1); PLATELET COUNT 54 10^3/uL (134-434); RBC 4.08 M/mm3 (4.00-5.60); RDW 14.7 % (11.9-15.9); WHITE BLOOD COUNT 4.3 K/mm3 (4.0-10.0)
[2022-07-29 12:29] LABS: BLOOD UREA NITROGEN 18.9 mg/dL (7-18)
[2022-07-29 12:30] LABS: ALBUMIN 3.1 g/dl (3.4-5.0); CALCIUM 8.3 mg/dL (8.5-10.1)
[2022-07-29] MEDS ORDERED: methaDONE HCL 10 MG TABLET PO SCH (12:30)
[2022-07-29 12:32] LABS: CREATININE 0.7 mg/dL (0.55-1.3)
[2022-07-29 12:33] LABS: BILIRUBIN,TOTAL 1.7 mg/dL (0.2-1); TOT PROT 6.3 g/dl (6.4-8.2)
[2022-07-29] MEDS: SERTRALINE HCL 50 MG TABLET (FP) PO SCH (12:43)
[2022-07-29] MEDS ORDERED: methaDONE 40 MG, methaDONE 20 MG PO ONE (12:45)
[2022-07-29] MEDS: IBUPROFEN 600 MG TABLET (FP) PO PRN (17:25)
[2022-07-29] MEDS: traZODone HCL 50 MG TABLET (FP) PO SCH (22:36)
[2022-07-29] MEDS: THIAMINE HCL 100 MG TABLET (FP) PO SCH (22:37)
[2022-07-29] MEDS: MELATONIN 5 MG TABLETS PO SCH (22:38)
[2022-07-30] MEDS: chlordiazePOXIDE HCL 25 MG CAPSULE PO SCH ×4 (06:21→22:53)
[2022-07-30] MEDS: methaDONE 40 MG, methaDONE 20 MG PO SCH (06:24)
[2022-07-30] MEDS: SERTRALINE HCL 50 MG TABLET (FP) PO SCH (10:35)
[2022-07-30] MEDS: PRENATAL VITAMINS W/ FOLIC ACID TABLET (FP) PO SCH (10:35)
[2022-07-30] MEDS: hydrOXYzine PAMOATE 25 MG CAPSULE (FP) PO PRN (10:35)
[2022-07-30] MEDS: LACTULOSE 20 GM/30 ML UDC (FOR ORAL USE ONLY) PO SCH ×4 (10:35→22:53)
[2022-07-30] MEDS: METHOCARBAMOL 500 MG TABLET PO PRN (10:35)
[2022-07-30] MEDS: MELATONIN 5 MG TABLETS PO SCH (22:53)
[2022-07-30] MEDS: traZODone HCL 50 MG TABLET (FP) PO SCH (22:53)
[2022-07-30] MEDS: THIAMINE HCL 100 MG TABLET (FP) PO SCH (22:53)
[2022-07-31] MEDS ORDERED: chlordiazePOXIDE HCL 10 MG CAPSULE PO PRN
[2022-07-31] MEDS: chlordiazePOXIDE HCL 10 MG CAPSULE PO SCH ×4 (06:38→22:04)
[2022-07-31] MEDS: methaDONE 40 MG, methaDONE 20 MG PO SCH (06:38)
[2022-07-31] MEDS: hydrOXYzine PAMOATE 25 MG CAPSULE (FP) PO PRN (10:50)
[2022-07-31] MEDS: METHOCARBAMOL 500 MG TABLET PO PRN (10:50)
[2022-07-31] MEDS: PRENATAL VITAMINS W/ FOLIC ACID TABLET (FP) PO SCH (10:50)
[2022-07-31] MEDS: SERTRALINE HCL 50 MG TABLET (FP) PO SCH (10:50)
[2022-07-31] MEDS: LACTULOSE 20 GM/30 ML UDC (FOR ORAL USE ONLY) PO SCH ×4 (10:51→22:04)
[2022-07-31] MEDS: THIAMINE HCL 100 MG TABLET (FP) PO SCH (22:04)
[2022-07-31] MEDS: traZODone HCL 50 MG TABLET (FP) PO SCH (22:04)
[2022-07-31] MEDS: MELATONIN 5 MG TABLETS PO SCH (22:05)
[2022-08-01] MEDS: methaDONE 40 MG, methaDONE 20 MG PO SCH (06:17)
[2022-08-01] MEDS: chlordiazePOXIDE HCL 10 MG CAPSULE PO SCH ×2 (06:18→17:57)
[2022-08-01] MEDS: SERTRALINE HCL 50 MG TABLET (FP) PO SCH (11:00)
[2022-08-01] MEDS: LACTULOSE 20 GM/30 ML UDC (FOR ORAL USE ONLY) PO SCH ×4 (11:00→22:41)
[2022-08-01] MEDS: PRENATAL VITAMINS W/ FOLIC ACID TABLET (FP) PO SCH (11:00)
[2022-08-01 21:03] VITALS: RESP 18
[2022-08-01] MEDS: THIAMINE HCL 100 MG TABLET (FP) PO SCH (22:42)
[2022-08-01] MEDS: MELATONIN 5 MG TABLETS PO SCH (22:42)
[2022-08-01] MEDS: traZODone HCL 50 MG TABLET (FP) PO SCH (22:42)
[2022-08-02] MEDS ORDERED: chlordiazePOXIDE HCL 10 MG CAPSULE PO ONE (05:00)
[2022-08-02] MEDS: methaDONE 40 MG, methaDONE 20 MG PO SCH (06:09)
[2022-08-02 09:30] VITALS: BP 109/68; PULSE 82; TEMP 97.5
[2022-08-02] MEDS: LACTULOSE 20 GM/30 ML UDC (FOR ORAL USE ONLY) PO SCH (09:46)
[2022-08-02] MEDS: SERTRALINE HCL 50 MG TABLET (FP) PO SCH (09:47)
[2022-08-02] MEDS: PRENATAL VITAMINS W/ FOLIC ACID TABLET (FP) PO SCH (09:47)
== END 2022-08-02 09:25 | disposition home or self-care (01) | DRG 773 ==
LOC: YASAS 12:24 → Y3N 15:41 → Y6N 16:33
PROVIDERS: ADMIT Allergy & Immunology; ATTEND Surgery
PROC: HZ2ZZZZ Detoxification Services for Substance Abuse Treatment (ICD-10-PCS; principal; 2022-07-28)
DX: F10.230 Alcohol dependence with withdrawal, uncomplicated (principal); F11.20 Opioid dependence, uncomplicated; F10.280 Alcohol dependence with alcohol-induced anxiety disorder; F10.282 Alcohol dependence with alcohol-induced sleep disorder; F32.9 Major depressive disorder, single episode, unspecified; U07.1 COVID-19; D64.9 Anemia, unspecified; E78.5 Hyperlipidemia, unspecified; K70.30 Alcoholic cirrhosis of liver without ascites; R79.89 Other specified abnormal findings of blood chemistry; R76.11 Nonspecific reaction to tuberculin skin test without active tuberculosis; Z62.810 Personal history of physical and sexual abuse in childhood; Z87.891 Personal history of nicotine dependence; Z88.8 Allergy status to other drugs, medicaments and biological substances
CPT/HCPCS: 36415; 80053; 82140; 85027; 86780; 87811; C9803-CS; U0003; U0005

== ENCOUNTER 2022-09-18 12:12 | Inpatient (IN) | payer OTHER ==
[2022-09-18 12:33] VITALS: BMI 33.3
[2022-09-18] MEDS ORDERED: POLYETHYLENE GLYCOL (HEALTHYLAX) 3350 17 GM PACKET PO PRN (12:57)
[2022-09-18] MEDS ORDERED: ACETAMINOPHEN 325 MG TABLET (FP) PO PRN (12:57)
[2022-09-18] MEDS ORDERED: NALOXONE HCL (KLOXXADO) 8 MG SPRAY NS PRN (12:57)
[2022-09-18] MEDS ORDERED: MAG HYDROX/AL HYDROX/SIMETH 30 ML UNIT-DOSE CUP PO PRN (12:57)
[2022-09-18] MEDS ORDERED: BISMUTH SUBSALICYLATE 524 MG/30 ML PO PRN (12:57)
[2022-09-18] MEDS ORDERED: ONDANSETRON *ODT* 4 MG TABLET SL PRN (12:57)
[2022-09-18] MEDS ORDERED: BENZONATATE 200 MG CAPSULE PO PRN (12:57)
[2022-09-18] MEDS ORDERED: IBUPROFEN 400 MG TABLET (FP) PO PRN (12:57)
[2022-09-18] MEDS ORDERED: LOPERAMIDE HCL 2 MG CAPSULE PO PRN (12:57)
[2022-09-18] MEDS ORDERED: BENZOCAINE/MENTHOL (CHLORASEPTIC ) LOZENGE MM PRN (12:57)
[2022-09-18] MEDS ORDERED: guaiFENesin 600 MG TABLET.ER (FP) PO PRN (12:57)
[2022-09-18] MEDS ORDERED: MAGNESIUM HYDROX 2400MG/30ML ORAL SUSPENSION 30 ML CUP PO PRN (12:57)
[2022-09-18] MEDS ORDERED: NALOXONE HCL 0.4 MG/ML VIAL IM PRN (12:57)
[2022-09-18] MEDS ORDERED: LORazepam 1 MG TABLET PO PRN (12:57)
[2022-09-18] MEDS ORDERED: IBUPROFEN 600 MG TABLET (FP) PO PRN (12:57)
[2022-09-18] MEDS ORDERED: DICYCLOMINE HCL 10 MG CAPSULE PO PRN (12:57)
[2022-09-18] MEDS ORDERED: LORazepam 2 MG TABLET PO ONE (14:15)
[2022-09-18] MEDS: BACITRACIN 0.9 GM PACKET TP SCH ×2 (14:30→22:46)
[2022-09-18] MEDS: PRENATAL VITAMINS W/ FOLIC ACID TABLET (FP) PO SCH (14:30)
[2022-09-18] MEDS: LORazepam 2 MG TABLET PO SCH ×2 (17:51→22:47)
[2022-09-18 17:52] LABS: HEMATOCRIT 35.6 % (35.4-49); HEMOGLOBIN 11.9 GM/dL (11.7-16.9); MCH 26.2 pg (25.7-33.7); MCHC 33.6 g/dl (32.0-35.9); MEAN CELL VOLUME 77.9 fl (80-96); MEAN PLT VOLUME 7.9 fl (7.5-11.1); RBC 4.56 M/mm3 (4.00-5.60); WHITE BLOOD COUNT 2.9 K/mm3 (4.0-10.0)
[2022-09-18 17:59] LABS: ALBUMIN 2.9 g/dl (3.4-5.0); CALCIUM 7.9 mg/dL (8.5-10.1)
[2022-09-18 18:00] LABS: BLOOD UREA NITROGEN 12.3 mg/dL (7-18); PLATELET COUNT 25 10^3/uL (134-434)
[2022-09-18 18:02] LABS: CREATININE 0.6 mg/dL (0.55-1.3)
[2022-09-18 18:04] LABS: BILIRUBIN,TOTAL 1.6 mg/dL (0.2-1); TOT PROT 6.7 g/dl (6.4-8.2)
[2022-09-18] MEDS: HYDROCORTISONE 1% TOPICAL CREAM 30 GM TUBE TP PRN (22:46)
[2022-09-18] MEDS: THIAMINE HCL 100 MG TABLET (FP) PO SCH (22:47)
[2022-09-18] MEDS: MELATONIN 5 MG TABLETS PO SCH (22:47)
[2022-09-18] MEDS: hydrOXYzine PAMOATE 25 MG CAPSULE (FP) PO PRN (22:48)
[2022-09-19] MEDS: LORazepam 2 MG TABLET PO SCH ×4 (05:16→22:25)
[2022-09-19] MEDS ORDERED: methaDONE HCL 10 MG TABLET PO SCH (08:30)
[2022-09-19] MEDS: methaDONE 40 MG, methaDONE 20 MG PO SCH (09:04)
[2022-09-19] MEDS: BACITRACIN 0.9 GM PACKET TP SCH ×2 (10:05→22:25)
[2022-09-19] MEDS: LACTULOSE 20 GM/30 ML UDC (FOR ORAL USE ONLY) PO SCH ×4 (10:05→22:25)
[2022-09-19] MEDS: PRENATAL VITAMINS W/ FOLIC ACID TABLET (FP) PO SCH (10:05)
[2022-09-19] MEDS: SERTRALINE HCL 50 MG TABLET (FP) PO SCH (10:07)
[2022-09-19] MEDS ORDERED: cloNIDine HCL 0.1 MG TABLET PO ONE (17:46)
[2022-09-19] MEDS: hydrOXYzine PAMOATE 25 MG CAPSULE (FP) PO PRN (17:49)
[2022-09-19] MEDS: traZODone HCL 50 MG TABLET (FP) PO SCH (22:25)
[2022-09-19] MEDS: THIAMINE HCL 100 MG TABLET (FP) PO SCH (22:25)
[2022-09-19] MEDS: MELATONIN 5 MG TABLETS PO SCH (22:26)
[2022-09-19] MEDS: METHOCARBAMOL 500 MG TABLET PO PRN (22:27)
[2022-09-20] MEDS: LORazepam 1 MG TABLET PO SCH ×4 (05:22→22:07)
[2022-09-20] MEDS: methaDONE 40 MG, methaDONE 20 MG PO SCH (05:22)
[2022-09-20] MEDS: hydrOXYzine PAMOATE 25 MG CAPSULE (FP) PO PRN ×2 (05:26→17:53)
[2022-09-20] MEDS: LACTULOSE 20 GM/30 ML UDC (FOR ORAL USE ONLY) PO SCH ×4 (10:11→22:08)
[2022-09-20] MEDS: BACITRACIN 0.9 GM PACKET TP SCH ×2 (10:11→22:07)
[2022-09-20] MEDS: SERTRALINE HCL 50 MG TABLET (FP) PO SCH (10:12)
[2022-09-20] MEDS: PRENATAL VITAMINS W/ FOLIC ACID TABLET (FP) PO SCH (10:12)
[2022-09-20 11:45] LABS: MCH 26.2 pg (25.7-33.7); MCHC 33.4 g/dl (32.0-35.9); MEAN CELL VOLUME 78.5 fl (80-96); MEAN PLT VOLUME 8.3 fl (7.5-11.1); RBC 4.58 M/mm3 (4.00-5.60); WHITE BLOOD COUNT 3.1 K/mm3 (4.0-10.0)
[2022-09-20 11:48] LABS: PLATELET COUNT 20 10^3/uL (134-434)
[2022-09-20 11:59] LABS: BLOOD UREA NITROGEN 13.7 mg/dL (7-18)
[2022-09-20 12:00] LABS: BILIRUBIN,TOTAL 4.1 mg/dL (0.2-1); CALCIUM 8.8 mg/dL (8.5-10.1)
[2022-09-20 12:03] LABS: CREATININE 0.7 mg/dL (0.55-1.3)
[2022-09-20 12:04] LABS: TOT PROT 6.9 g/dl (6.4-8.2)
[2022-09-20] MEDS ORDERED: POTASSIUM CHLORIDE ORAL LIQUID 20 MEQ/15 ML PO ONE (12:06)
[2022-09-20] MEDS: POTASSIUM CHLORIDE ORAL LIQUID 20 MEQ/15 ML PO SCH (22:07)
[2022-09-20] MEDS: traZODone HCL 50 MG TABLET (FP) PO SCH (22:07)
[2022-09-20] MEDS: HYDROCORTISONE 1% TOPICAL CREAM 30 GM TUBE TP PRN (22:08)
[2022-09-20] MEDS: MELATONIN 5 MG TABLETS PO SCH (22:08)
[2022-09-20] MEDS: THIAMINE HCL 100 MG TABLET (FP) PO SCH (22:08)
[2022-09-21] MEDS ORDERED: LORazepam 0.5 MG TABLET PO PRN
[2022-09-21] MEDS: methaDONE 40 MG, methaDONE 20 MG PO SCH (05:29)
[2022-09-21] MEDS: LORazepam 0.5 MG TABLET PO SCH ×4 (05:29→22:12)
[2022-09-21] MEDS: hydrOXYzine PAMOATE 25 MG CAPSULE (FP) PO PRN ×3 (05:34→22:15)
[2022-09-21] MEDS: BACITRACIN 0.9 GM PACKET TP SCH ×2 (10:11→22:11)
[2022-09-21] MEDS: LACTULOSE 20 GM/30 ML UDC (FOR ORAL USE ONLY) PO SCH ×4 (10:11→22:11)
[2022-09-21] MEDS: POTASSIUM CHLORIDE ORAL LIQUID 20 MEQ/15 ML PO SCH ×2 (10:11→23:51)
[2022-09-21] MEDS: SERTRALINE HCL 50 MG TABLET (FP) PO SCH (10:12)
[2022-09-21] MEDS: PRENATAL VITAMINS W/ FOLIC ACID TABLET (FP) PO SCH (10:12)
[2022-09-21 10:51] LABS: BASO % 1.1 % (0-2.0); EOS % 3.4 % (0-4.5); HEMATOCRIT 32.8 % (35.4-49); HEMOGLOBIN 11.1 GM/dL (11.7-16.9); LYMPH % 37.3 % (8-40); MCH 26.4 pg (25.7-33.7); MCHC 33.8 g/dl (32.0-35.9); MEAN CELL VOLUME 78.3 fl (80-96); MONO % 9.5 % (3.8-10.2); NEUT % 48.7 % (42.8-82.8); RBC 4.19 M/mm3 (4.00-5.60); RDW 17.1 % (11.9-15.9); WHITE BLOOD COUNT 3.1 K/mm3 (4.0-10.0)
[2022-09-21 10:53] LABS: PLATELET COUNT 19 10^3/uL (134-434)
[2022-09-21] MEDS: METHOCARBAMOL 500 MG TABLET PO PRN (17:32)
[2022-09-21] MEDS: MELATONIN 5 MG TABLETS PO SCH (22:12)
[2022-09-21] MEDS: THIAMINE HCL 100 MG TABLET (FP) PO SCH (22:12)
[2022-09-21] MEDS: traZODone HCL 50 MG TABLET (FP) PO SCH (22:12)
[2022-09-21] MEDS ORDERED: POTASSIUM CHLORIDE ORAL LIQUID 20 MEQ/15 ML PO ONE (23:31)
[2022-09-22] MEDS ORDERED: LORazepam 0.5 MG TABLET PO ONE (05:00)
[2022-09-22] MEDS: methaDONE 40 MG, methaDONE 20 MG PO SCH (05:13)
[2022-09-22 09:44] VITALS: BP 124/76; PULSE 85; RESP 19; TEMP 97.7
[2022-09-22] MEDS: BACITRACIN 0.9 GM PACKET TP SCH (10:18)
[2022-09-22] MEDS: SERTRALINE HCL 50 MG TABLET (FP) PO SCH (10:18)
[2022-09-22] MEDS: METHOCARBAMOL 500 MG TABLET PO PRN (10:18)
[2022-09-22] MEDS: hydrOXYzine PAMOATE 25 MG CAPSULE (FP) PO PRN (10:18)
[2022-09-22] MEDS: PRENATAL VITAMINS W/ FOLIC ACID TABLET (FP) PO SCH (10:18)
[2022-09-22] MEDS: LACTULOSE 20 GM/30 ML UDC (FOR ORAL USE ONLY) PO SCH (11:26)
== END 2022-09-22 12:09 | disposition other institution (70) | DRG 773 ==
LOC: YASAS 12:12 → Y3N 13:23
PROVIDERS: ADMIT Allergy & Immunology; ATTEND Surgery
PROC: HZ2ZZZZ Detoxification Services for Substance Abuse Treatment (ICD-10-PCS; principal; 2022-09-18)
DX: F10.230 Alcohol dependence with withdrawal, uncomplicated (principal); F11.20 Opioid dependence, uncomplicated; F13.20 Sedative, hypnotic or anxiolytic dependence, uncomplicated; F10.282 Alcohol dependence with alcohol-induced sleep disorder; F32.9 Major depressive disorder, single episode, unspecified; D69.6 Thrombocytopenia, unspecified; R79.89 Other specified abnormal findings of blood chemistry; R74.01 Elevation of levels of liver transaminase levels; R73.9 Hyperglycemia, unspecified; Z87.891 Personal history of nicotine dependence; Z88.8 Allergy status to other drugs, medicaments and biological substances
CPT/HCPCS: 36415; 80053; 82140; 84132; 85025; 85027; 86780; 87811; C9803-CS; U0003; U0005

== ENCOUNTER 2022-09-20 13:21 | Emergency (ER) | payer OTHER ==
[2022-09-20] MEDS ORDERED: diazePAM CARPU-JECT 10 MG/2 ML DISP.SYRIN IVPUSH ONE (13:58)
[2022-09-20 14:04] VITALS: BP 136/84; TEMP 98.5; BMI 33.2
[2022-09-20] MEDS ORDERED: diazePAM CARPU-JECT 10 MG/2 ML DISP.SYRIN ONE (14:11)
[2022-09-20] MEDS ORDERED: diazePAM 5 MG TABLET ONE (14:17)
[2022-09-20] MEDS ORDERED: chlordiazePOXIDE HCL 25 MG CAPSULE PO ONE (14:17)
[2022-09-20] MEDS ORDERED: chlordiazePOXIDE HCL 25 MG CAPSULE ONE (14:20)
[2022-09-20 15:00] LABS: BASO % 0.7 % (0-2.0); HEMOGLOBIN 12.4 GM/dL (11.7-16.9); LYMPH % 22.4 % (8-40); MCH 26.1 pg (25.7-33.7); MCHC 33.5 g/dl (32.0-35.9); MEAN CELL VOLUME 77.8 fl (80-96); MEAN PLT VOLUME 8.9 fl (7.5-11.1); MONO % 10.9 % (3.8-10.2); RBC 4.76 M/mm3 (4.00-5.60); RDW 17.2 % (11.9-15.9); WHITE BLOOD COUNT 3.7 K/mm3 (4.0-10.0)
[2022-09-20 15:04] LABS: PLATELET COUNT 20 10^3/uL (134-434)
[2022-09-20 15:36] LABS: INR 1.29 (0.83-1.09); PROTHROMBIN TIME (PATIENT) 14.9 SEC (9.7-13.0)
[2022-09-20 15:38] LABS: CALCIUM 8.7 mg/dL (8.5-10.1)
[2022-09-20 15:39] LABS: ACTIVATED PTT 35.5 SECONDS (25.2-36.5)
[2022-09-20 15:39] LABS: ALBUMIN 3.2 g/dl (3.4-5.0); BLOOD UREA NITROGEN 13.9 mg/dL (7-18); MAGNESIUM 2.1 mg/dL (1.8-2.4)
[2022-09-20 15:41] LABS: BILIRUBIN,DIRECT 1.9 mg/dL (0.0-0.2)
[2022-09-20 15:42] LABS: CREATININE 0.7 mg/dL (0.55-1.3)
[2022-09-20 15:43] LABS: BILIRUBIN,TOTAL 3.9 mg/dL (0.2-1); TOT PROT 7.3 g/dl (6.4-8.2)
[2022-09-20 16:02] VITALS: PULSE 101; RESP 20
== END 2022-09-20 16:21 | disposition home or self-care (01) ==
LOC: JER 13:21
DX: D69.6 Thrombocytopenia, unspecified (principal); K74.60 Unspecified cirrhosis of liver
CPT/HCPCS: 36415; 80053; 82248; 82962; 83735; 85025; 85610; 85730; 93005; 93010; 99284-25

== ENCOUNTER 2022-11-22 16:10 | Inpatient (IN) | payer OTHER ==
[2022-11-22 16:46] VITALS: BMI 31.7
[2022-11-22] MEDS ORDERED: BENZOCAINE/MENTHOL (CHLORASEPTIC ) LOZENGE MM PRN (17:27)
[2022-11-22] MEDS ORDERED: IBUPROFEN 400 MG TABLET (FP) PO PRN (17:27)
[2022-11-22] MEDS ORDERED: NALOXONE HCL 0.4 MG/ML VIAL IM PRN (17:27)
[2022-11-22] MEDS ORDERED: BISMUTH SUBSALICYLATE 524 MG/30 ML PO PRN (17:27)
[2022-11-22] MEDS ORDERED: MAG HYDROX/AL HYDROX/SIMETH 30 ML UNIT-DOSE CUP PO PRN (17:27)
[2022-11-22] MEDS ORDERED: IBUPROFEN 600 MG TABLET (FP) PO PRN (17:27)
[2022-11-22] MEDS ORDERED: BENZONATATE 200 MG CAPSULE PO PRN (17:27)
[2022-11-22] MEDS ORDERED: guaiFENesin 600 MG TABLET.ER (FP) PO PRN (17:27)
[2022-11-22] MEDS ORDERED: DICYCLOMINE HCL 10 MG CAPSULE PO PRN (17:27)
[2022-11-22] MEDS ORDERED: ONDANSETRON *ODT* 4 MG TABLET SL PRN (17:27)
[2022-11-22] MEDS ORDERED: LOPERAMIDE HCL 2 MG CAPSULE PO PRN (17:27)
[2022-11-22] MEDS ORDERED: chlordiazePOXIDE HCL 25 MG CAPSULE PO PRN (17:27)
[2022-11-22] MEDS ORDERED: ACETAMINOPHEN 325 MG TABLET (FP) PO PRN (17:27)
[2022-11-22] MEDS ORDERED: NALOXONE HCL (KLOXXADO) 8 MG SPRAY NS PRN (17:27)
[2022-11-22] MEDS ORDERED: POLYETHYLENE GLYCOL (HEALTHYLAX) 3350 17 GM PACKET PO PRN (17:27)
[2022-11-22] MEDS ORDERED: MAGNESIUM HYDROX 2400MG/30ML ORAL SUSPENSION 30 ML CUP PO PRN (17:27)
[2022-11-22] MEDS ORDERED: LORazepam 1 MG TABLET PO PRN (17:34)
[2022-11-22] MEDS ORDERED: traZODone HCL 50 MG TABLET (FP) PO ONE (22:00)
[2022-11-22] MEDS: LORazepam 2 MG TABLET PO SCH (22:13)
[2022-11-22] MEDS: MELATONIN 5 MG TABLETS PO SCH (22:13)
[2022-11-22] MEDS: THIAMINE HCL 100 MG TABLET (FP) PO SCH (22:13)
[2022-11-22] MEDS ORDERED: chlordiazePOXIDE HCL 25 MG CAPSULE PO SCH (23:00)
[2022-11-23] MEDS: LORazepam 2 MG TABLET PO SCH ×4 (05:28→22:52)
[2022-11-23 09:43] LABS: POTASSIUM 3.7 mmol/L (3.5-5.1)
[2022-11-23 09:47] LABS: ALBUMIN 3.2 g/dl (3.4-5.0); CALCIUM 8.3 mg/dL (8.5-10.1)
[2022-11-23 09:49] LABS: CREATININE 0.6 mg/dL (0.55-1.3)
[2022-11-23 09:52] LABS: TOT PROT 6.8 g/dl (6.4-8.2)
[2022-11-23 09:55] LABS: HEMATOCRIT 36.6 % (35.4-49); HEMOGLOBIN 12.3 GM/dL (11.7-16.9); MCHC 33.7 g/dl (32.0-35.9); PLATELET COUNT 46 10^3/uL (134-434); RBC 4.75 M/mm3 (4.00-5.60); WHITE BLOOD COUNT 3.9 K/mm3 (4.0-10.0)
[2022-11-23] MEDS ORDERED: methaDONE HCL 10 MG TABLET PO SCH (10:15)
[2022-11-23] MEDS: methaDONE 40 MG, methaDONE 20 MG PO SCH (10:27)
[2022-11-23] MEDS: PRENATAL VITAMINS W/ FOLIC ACID TABLET (FP) PO SCH (10:27)
[2022-11-23] MEDS: SERTRALINE HCL 50 MG TABLET (FP) PO SCH (10:29)
[2022-11-23] MEDS: METHOCARBAMOL 500 MG TABLET PO PRN (10:29)
[2022-11-23] MEDS: THIAMINE HCL 100 MG TABLET (FP) PO SCH (22:52)
[2022-11-23] MEDS: MELATONIN 5 MG TABLETS PO SCH (22:52)
[2022-11-23] MEDS: traZODone HCL 50 MG TABLET (FP) PO SCH (22:52)
[2022-11-23] MEDS: hydrOXYzine PAMOATE 25 MG CAPSULE (FP) PO PRN (22:53)
[2022-11-24] MEDS ORDERED: chlordiazePOXIDE HCL 25 MG CAPSULE PO SCH (05:00)
[2022-11-24] MEDS: methaDONE 40 MG, methaDONE 20 MG PO SCH (05:46)
[2022-11-24] MEDS: LORazepam 1 MG TABLET PO SCH ×4 (05:46→22:28)
[2022-11-24] MEDS: PRENATAL VITAMINS W/ FOLIC ACID TABLET (FP) PO SCH (10:15)
[2022-11-24] MEDS: METHOCARBAMOL 500 MG TABLET PO PRN (10:15)
[2022-11-24] MEDS: SERTRALINE HCL 50 MG TABLET (FP) PO SCH (10:16)
[2022-11-24] MEDS: hydrOXYzine PAMOATE 25 MG CAPSULE (FP) PO PRN (22:29)
[2022-11-24] MEDS: traZODone HCL 50 MG TABLET (FP) PO SCH (22:29)
[2022-11-24] MEDS: MELATONIN 5 MG TABLETS PO SCH (22:29)
[2022-11-24] MEDS: THIAMINE HCL 100 MG TABLET (FP) PO SCH (22:29)
[2022-11-25] MEDS ORDERED: chlordiazePOXIDE HCL 10 MG CAPSULE PO PRN
[2022-11-25] MEDS ORDERED: LORazepam 0.5 MG TABLET PO PRN
[2022-11-25] MEDS ORDERED: chlordiazePOXIDE HCL 10 MG CAPSULE PO SCH (05:00)
[2022-11-25] MEDS: methaDONE 40 MG, methaDONE 20 MG PO SCH (05:28)
[2022-11-25] MEDS: LORazepam 0.5 MG TABLET PO SCH ×4 (05:28→22:08)
[2022-11-25] MEDS: SERTRALINE HCL 50 MG TABLET (FP) PO SCH (10:02)
[2022-11-25] MEDS: PRENATAL VITAMINS W/ FOLIC ACID TABLET (FP) PO SCH (10:02)
[2022-11-25] MEDS: hydrOXYzine PAMOATE 25 MG CAPSULE (FP) PO PRN ×2 (10:04→22:10)
[2022-11-25] MEDS: METHOCARBAMOL 500 MG TABLET PO PRN ×2 (10:04→22:10)
[2022-11-25] MEDS ORDERED: ALBUTEROL SO4 HFA INHALER IH PRN (12:23)
[2022-11-25] MEDS: THIAMINE HCL 100 MG TABLET (FP) PO SCH (22:08)
[2022-11-25] MEDS: traZODone HCL 50 MG TABLET (FP) PO SCH (22:08)
[2022-11-25] MEDS: MELATONIN 5 MG TABLETS PO SCH (22:08)
[2022-11-25] MEDS: BUDESONIDE/FORMETEROL FUMARATE 160/4.5 mcg INHALER IH SCH (22:53)
[2022-11-26] MEDS ORDERED: LORazepam 0.5 MG TABLET PO ONE (05:00)
[2022-11-26] MEDS ORDERED: chlordiazePOXIDE HCL 10 MG CAPSULE PO SCH (05:00)
[2022-11-26] MEDS: methaDONE 40 MG, methaDONE 20 MG PO SCH (05:35)
[2022-11-26 07:19] VITALS: BP 115/70; PULSE 68; RESP 18; TEMP 97.6
[2022-11-26] MEDS: PRENATAL VITAMINS W/ FOLIC ACID TABLET (FP) PO SCH (10:07)
[2022-11-26] MEDS: hydrOXYzine PAMOATE 25 MG CAPSULE (FP) PO PRN (10:08)
[2022-11-26] MEDS: SERTRALINE HCL 50 MG TABLET (FP) PO SCH (10:08)
[2022-11-26] MEDS: BUDESONIDE/FORMETEROL FUMARATE 160/4.5 mcg INHALER IH SCH (10:08)
[2022-11-26] MEDS: METHOCARBAMOL 500 MG TABLET PO PRN (10:09)
[2022-11-27] MEDS ORDERED: chlordiazePOXIDE HCL 10 MG CAPSULE PO ONE (05:00)
== END 2022-11-26 12:56 | disposition home or self-care (01) | DRG 773 ==
LOC: YASAS 16:10 → Y6N 17:52
PROVIDERS: ADMIT Allergy & Immunology; ATTEND Surgery
PROC: HZ2ZZZZ Detoxification Services for Substance Abuse Treatment (ICD-10-PCS; principal; 2022-11-22)
DX: F10.230 Alcohol dependence with withdrawal, uncomplicated (principal); F11.20 Opioid dependence, uncomplicated; F10.282 Alcohol dependence with alcohol-induced sleep disorder; F32.9 Major depressive disorder, single episode, unspecified; E78.2 Mixed hyperlipidemia; J45.20 Mild intermittent asthma, uncomplicated; K70.30 Alcoholic cirrhosis of liver without ascites; Z87.891 Personal history of nicotine dependence; Z86.11 Personal history of tuberculosis; Z88.8 Allergy status to other drugs, medicaments and biological substances
CPT/HCPCS: 36415; 80053; 83036; 85027; 86780; 87635